=== PATIENT | male | born 1950 | race Caucasian/White ===

== ENCOUNTER 2019-08-12 00:06 | Outpatient (CLI) | payer MEDICARE, OTHER, SELFPAY ==
[2019-08-12 16:41] LABS: SARS-CoV-2 RNA PCR Negative
== END 2019-08-12 00:07 | disposition home or self-care (01) ==
LOC: ANHCOVIDDT 00:07
PROVIDERS: PCP Family Medicine; Visit Provider Internal Medicine Gastroenterology
DX: Z01.812 Encounter for preprocedural laboratory examination (principal); Z20.828 Contact with and (suspected) exposure to other viral communicable diseases
CPT/HCPCS: 87635; C9803; U0003

== ENCOUNTER 2019-08-14 01:51 | Day surgery (SDC) | payer MEDICARE, OTHER, SELFPAY ==
[2019-08-07 12:04] VITALS: BMI 25.0
[2019-08-14 08:16] VITALS: BP 128/77; PULSE 57; RESP 16; TEMP 36.4; O2SAT 99; BMI 25.1
--- NOTE | 2019-08-14 08:19 | P.PNAN_ITS ---
Anes - Initial Pre Proc Eval Procedure: Operation Date: 08/14/19 09:00 Proposed Procedures p Screening Colonoscopy - Eliceo Titus MD Date/Time: 08/14/19 08:19 Surgeon: Eliceo Titus MD Pre Op Diagnosis: History of Polyps Patient Data Age: 68 Gender: M Height: 5 ft 9 in Weight: 77.1 kg Last Vital Signs Temp 97.5 F L 08/14/19 08:16 Pulse 57 L 08/14/19 08:16 Resp 16 08/14/19 08:16 BP 128/77 08/14/19 08:16 Pulse Ox 99 08/14/19 08:16 Allergies Allergy/AdvReac Type Severity Reaction Status Date / Time No Known Allergies Allergy Unverified 12/21/17 03:24 Home Medications Medication Instructions Recorded Confirmed Type aspirin [Aspir-81] 81 mg PO DAILY 08/07/19 08/07/19 History bupropion HCl [Wellbutrin SR] 150 mg PO DAILY 08/07/19 08/07/19 History citalopram [Celexa] 40 mg PO DAILY 08/07/19 08/07/19 History metformin [Glucophage] 250 mg PO BID 08/07/19 08/14/19 History simvastatin [Zocor] 80 mg PO DAILY 08/07/19 08/14/19 History Patient hx anesthesia problems: none Family hx anesthesia problems: none [facility] Past Medical History Medical History (Updated 08/14/19 @ 08:18 by Charles Daniels MD) Arthritis Diabetes Hyperlipidemia Social History Social History Smoking status: Never smoker Alcohol intake: never Gender identity (if verbalized by the patient): Male Anes - Eval Final PreProcedure Day of Procedure 08/14/19 08:19 Patient weight: normal Heart: bradycardia Lungs: clear to auscultation Airway: Mallampati scale class III Neurological: alert and oriented Last oral intake: >/= 8 hours ASA classification: III Emergent: no Anesthetic plan: proceed Anesthesia type and monitoring: general GIVS and standard monitoring Informed Consent: The patient's anesthetic plan and its attendant risks and benefits were discussed with the patient/family/POA. Questions were solicited and answers provided to the satisfaction of the patient/family/POA.
[2019-08-14] MEDS: LACTATED RINGERS 1,000 ML 150 ML IV CONT (08:35)
[2019-08-14 08:38] LABS: Glucose Point of Care 145 (65-105)
--- NOTE | 2019-08-14 08:55 | PM.HPGS ---
History of Present Illness History of Present Illness Consent: Risks, benefits, and alternatives have been discussed and questions answered. Patient agrees to proceed with procedure. Chief complaint: History of Polyps Narrative: Barno Barnett is a 68 year old male With a history of polyps PMFSH Past Medical History Medical History Arthritis Diabetes Hyperlipidemia Social History Social History Smoking status: Never smoker Alcohol intake: never Gender identity (if verbalized by the patient): Male Meds Home Medications and Allergies Home Medications Medication Instructions Recorded Confirmed Type aspirin [Aspir-81] 81 mg PO DAILY 08/07/19 08/07/19 History bupropion HCl [Wellbutrin SR] 150 mg PO DAILY 08/07/19 08/07/19 History citalopram [Celexa] 40 mg PO DAILY 08/07/19 08/07/19 History metformin [Glucophage] 250 mg PO BID 08/07/19 08/14/19 History simvastatin [Zocor] 80 mg PO DAILY 08/07/19 08/14/19 History Allergies Allergy/AdvReac Type Severity Reaction Status Date / Time No Known Allergies Allergy Unverified 12/21/17 03:24 Vital Signs Vital Signs - 24 hr 08/14/19 08:16 Temperature 36.4 C L Pulse Rate 57 L Respiratory Rate 16 Blood Pressure 128/77 Pulse Oximetry 99 Exam Resp: Auscultation: clear to auscultation bilaterally Cardio: Rate: regular rate Rhythm: regular rhythm GI: GI Palp: Yes Soft to palpation and No Tenderness to palpation present (GI) Assessment and Plan Assessment and plan (1) Personal history of colonic polyps: Code(s): Z86.010 - Personal history of colonic polyps Status: Acute Assessment and Plan: Colonoscopy with possible biopsy or polypectomy or cautery or injection of substances.
[2019-08-14 09:12] VITALS: BP 82/39; PULSE 60; RESP 16; O2SAT 97
[2019-08-14 09:22] VITALS: BP 88/42; PULSE 51; RESP 16; O2SAT 97
[2019-08-14 09:32] VITALS: BP 102/57; PULSE 53; RESP 18; O2SAT 99
[2019-08-14 09:42] VITALS: BP 107/61; PULSE 58; RESP 20; O2SAT 99
== END 2019-08-14 10:01 | disposition home or self-care (01) ==
PROVIDERS: PCP Family Medicine; Visit Provider Internal Medicine Gastroenterology
PROC: 0DJD8ZZ Inspection of Lower Intestinal Tract, Via Natural or Artificial Opening Endoscopic (ICD-10-PCS; CPT 45378; principal; 2019-08-14 09:00)
DX: Z12.11 Encounter for screening for malignant neoplasm of colon (principal); K57.30 Diverticulosis of large intestine without perforation or abscess without bleeding; E11.9 Type 2 diabetes mellitus without complications; E78.5 Hyperlipidemia, unspecified; M19.90 Unspecified osteoarthritis, unspecified site; Z79.84 Long term (current) use of oral hypoglycemic drugs; Z79.82 Long term (current) use of aspirin
CPT/HCPCS: G0105; J2704; J7120

== ENCOUNTER 2019-10-03 16:19 | Outpatient (CLI) | payer MEDICARE, OTHER, SELFPAY ==
--- NOTE | ~2019-10-03 | CT_ITS ---
EXAMINATION: CT lung screening DATE: 10/03/2019 16:56 INDICATION: Personal history of tobacco dependence, current smoker with 40 pack year history TECHNIQUE: Computed tomography (CT) of the chest was performed without intravenous contrast. The dose -length product (DLP) was 108.56 mGy-cm. Automated exposure control and iterative reconstruction tech [employer] were employed. COMPARISON: 10/11/2018 FINDINGS: No pulmonary nodules are identified. There is mild emphysema. There are minimal airspace op acities of the lower lobes, likely infectious or inflammatory. There is no pleural effusion or pneumo thorax. Calcified coronary artery atherosclerosis is noted. No pathologically enlarged thoracic lymph nodes are identified. The heart size is normal. The gallbladder is surgically absent. There is mild thoracic spondylosis. IMPRESSION: 1. Lung-RADS category 1: Negative. Continue annual screening with noncontrast low-dose chest CT in 12 months. Reviewed, dictated and finalized at location A. IMPRESSION: 1. Lung-RADS category 1: Negative. Continue annual screening with noncontrast l ow-dose chest CT in 12 months.
== END 2019-10-03 16:20 | disposition home or self-care (01) ==
LOC: ANHIMG 16:20
PROVIDERS: PCP Family Medicine; Visit Provider Family Medicine
DX: Z12.2 Encounter for screening for malignant neoplasm of respiratory organs (principal); Z87.891 Personal history of nicotine dependence
CPT/HCPCS: G0297

== ENCOUNTER 2020-01-08 17:33 | Observation (INO) | payer MEDICARE, OTHER, SELFPAY ==
[2020-01-08] VITALS (38 sets, daily range): BP systolic 115–146; BP diastolic 68–86; PULSE 54–68; RESP 10–22; TEMP 36.6–36.9; O2SAT 95–100; BMI 24.6
--- NOTE | ~2020-01-08 | XR_ITS ---
EXAMINATION: XR chest 2V 01/08/2020 18:34 INDICATION: Left-sided chest pressure PROCEDURE: 2 view chest COMPARISON: 04/07/2018 FINDINGS: The lungs are clear. The cardiomediastinal silhouette is within normal limits. There are no pleural effusions. There is no pneumothorax suspected. IMPRESSION: 1: NO ACUTE CARDIOPULMONARY DISEASE. Reviewed, dictated and finalized at location A.
--- NOTE | 2020-01-08 17:34 | ECG_ITS ---
Measurements Intervals [place] Rate: 54 P: 42 [place]: 162 QRS: -14 QRSD: 75 T: 39 QT: 425 QTc: 403 Interpretive Statements SINUS BRADYCARDIA CONSIDER INFERIOR INFARCT, AGE INDETERMINATE BASELINE ARTIFACT- I, III, AVR, AVL, AVF, V4-V6 ABNORMAL ECG Electronically Signed On 01-08-2020 17:51:11 CDT by Juan Cee D.O.
[2020-01-08 18:03] LABS: Basophils Absolute Auto 0.1 K/mm3 (0.0-0.1); Eosinophils Absolute Auto 0.1 K/mm3 (0-0.3); Eosinophils Percent Auto 1.3 % (0-4.4); Hematocrit 42.8 % (42.0-52.0); Hemoglobin 14.9 g/dL (14.0-18.0); Immature Granulocyte Absolute 0.13 K/mm3 (0.00-0.031); Immature Granulocyte Percent A 1.9 % (0-0.5); Mean Corpuscular HGB Conc 34.8 g/dl (32-36); Mean Corpuscular Hemoglobin 31.6 pg (26-34); Mean Corpuscular Volume 90.7 fl (80-100); Mean Platelet Volume 9.5 fl (7.4-10.4); Monocytes Absolute Auto 0.6 K/mm3 (0.1-0.6); Neutrophils Absolute Auto 4.2 K/mm3 (1.3-6.7); Neutrophils Percent Auto 61.8 % (45.5-73.1); Platelet Count Result 246 k/mm3 (150-375); Red Blood Count 4.72 M/mm3 (4.6-6.20); Red Cell Distribution Width 12.6 % (11.5-14.5); White Blood Count 6.8 K/mm3 (4.5-10.0)
[2020-01-08 18:13] LABS: INR 0.9; Prothrombin Time 12.3 Seconds (11.1-14.7)
[2020-01-08 18:14] LABS: Anion Gap 8 mmol/L (8-16); Blood Urea Nitrogen 16 mg/dL (9-20); Calcium 9.2 mg/dL (8.4-10.2); Carbon Dioxide 24 mmol/L (22-30); Chloride 107 mmol/L (98-107); Estimated Glomerular Filt Rate > 60; Glucose 107 mg/dL (75-110); Partial Thromboplastin Time 26.2 SECONDS (22.3-36.8); Sodium 139 mmol/L (137-145)
--- NOTE | 2020-01-08 18:18 | ED.CHESTPAIN ---
HPI - Chest Pain General Chief Complaint: Chest Pain Stated Complaint: chest discomfort Time Seen by Provider: 01/08/20 17:55 Source: patient Mode of arrival: ambulatory Limitations: no limitations History of Present Illness HPI narrative: 69 years old white male complaining of left chest discomfort that started in the evening, at rest 2 days ago, constant, no aggravating or relieving factors, no radiation. Patient denies any fever, chills, nausea, vomiting, shortness of breath, coughing, sore throat, headache, new or recent physical activity, or history of similar symptoms. History of diabetes, hyperlipidemia, history of smoking, currently he is vaping, no family history of coronary artery disease, Discomfort is 1.5 out of 10 all the time. EKG on arrival showed sinus bradycardia at 54 bpm, possible anterior myocardial infarction of indeterminate age, possible inferior myocardial infarction probably old, which is new compared to the previous EKG August 2018. Related Data Home Medications Medication Instructions Recorded Confirmed aspirin [Aspir-81] 81 mg PO DAILY 08/07/19 08/07/19 bupropion HCl [Wellbutrin SR] 150 mg PO DAILY 08/07/19 08/07/19 citalopram [Celexa] 40 mg PO DAILY 08/07/19 08/07/19 metformin [Glucophage] 250 mg PO BID 08/07/19 08/14/19 simvastatin [Zocor] 80 mg PO DAILY 08/07/19 08/14/19 Allergies Allergy/AdvReac Type Severity Reaction Status Date / Time No Known Allergies Allergy Verified 01/08/20 18:12 Review of Systems Review of Systems: Narrative: CONSTITUTIONAL: Denies fever, chills, or sweats. EYES: Denies visual changes, redness, or discharge. ENT: Denies rhinorrhea, congestion, sore throat, or otalgia. CARDIOVASCULAR: Denies chest pain, palpitations, or edema. RESPIRATORY: Denies cough or dyspnea. GASTROINTESTINAL: Denies abdominal pain, nausea, vomiting, or diarrhea. GENITOURINARY: Denies dysuria or hematuria. SKIN: Denies rash or itching. MUSCULOSKELETAL: Denies back pain, joint pain, or myalgia. NEUROLOGIC: Denies headache, numbness, or weakness. PSYCHIATRIC: Denies anxiety or depression. [facility] Past Medical History Medical History (Updated 01/08/20 @ 19:30 by Poli Rebolledo MD) Arthritis Diabetes Hyperlipidemia Social History Social History Smoking status: Never smoker Alcohol intake: never Gender identity (if verbalized by the patient): Male Exam Narrative: Exam Narrative: General appearance: Well-developed, well-nourished Skin: Normal color Head: Normocephalic, nontraumatic Eyes: Clear conjunctiva ENT: Oropharynx normal, ears normal, nose normal Neck: Supple, nontender Chest and respiratory: Airway patent, no respiratory distress, no accessory muscle use Heart: Regular rate/rhythm Abdomen: Soft, nontender, no organomegaly, quiet bowel sounds Vascular: Normal peripheral pulses, normal capillary refill. Musculoskeletal: Normal range of motion, nontender back Neurologic: Alert and oriented ?3, HARBOR MASTER is normal as tested, no gross motor deficit Course Course Emergency Course: Stable Consultations Consultation #1: TAMELA Date: 01/08/20 Time: 19:31 Vital Signs Vital signs: Vital Signs Pulse Rate 57 L 01/08/20 17:40 Respiratory Rate 19 01/08/20 17:40 Blood Pressure 142/84 H 01/08/20 17:40 Pulse Oximetry 100 01/08/20 17:40 Temperature 36.8 C 01/08/20 18:02 Pulse Rate 54 L 01/08/20 19:27 Respiratory Rate 12 01/08/20 19:27 Blood Pressure 131/83 01/08/20 19:27 Pulse Oximetry 97 01/08/20 19:27 MDM - Chest Pain Lab Data Result diagrams: 01/08/20 17:58 01/08/20 17:58 Labs: Lab Results
[2020-01-08 18:26] LABS: Troponin I < 0.012 ng/mL (0.000-0.034)
[2020-01-08] MEDS: ASPIRIN 81 MG CHEWABLE TABLET 324 MG PO (19:00)
[2020-01-08 19:02] LABS: Lipase 92 U/L (23-300)
--- NOTE | 2020-01-08 19:10 | PC.NURSE ---
0 - Pharmacy called for Pyxis refill of Nitro. aware.
[2020-01-08 19:17] LABS: D Dimer 0.27 ug/mL (<0.48)
[2020-01-08] MEDS: NITROGLYCERIN SL 0.4 MG TABLET SUBLINGUAL (19:26)
--- NOTE | 2020-01-08 19:36 | PC.NURSE ---
Pt states improvement to chest pain after 2 doses of Nitro 0.4mg. Pt states he feels hunger pains instead of chest pain at this time. MD states pt can eat at this time. Meal given to pt.
--- NOTE | 2020-01-08 20:55 | PC.NURSE ---
Report called to [facility] RN.
[2020-01-08] MEDS: ENOXAPARIN 80 MG/0.8 ML SYRINGE SUB-Q (20:58)
[2020-01-08 21:12] LABS: Troponin I < 0.012 ng/mL (0.000-0.034)
--- NOTE | 2020-01-08 23:58 | ECG_ITS ---
Measurements Intervals [place] Rate: 54 P: 57 [place]: 179 QRS: 1 QRSD: 78 T: 48 QT: 441 QTc: 420 Interpretive Statements SINUS BRADYCARDIA BORDERLINE ECG Electronically Signed On 01-09-2020 7:10:19 CDT by Juan Cee D.O.
[2020-01-09] VITALS: PULSE 55
[2020-01-09 00:22] LABS: Troponin I < 0.012 ng/mL (0.000-0.034)
[2020-01-09 01:56] VITALS: PULSE 52
[2020-01-09 04:00] VITALS: BP 117/66; PULSE 49; PULSE 55; RESP 20; TEMP 36.3; O2SAT 100
[2020-01-09 05:42] VITALS: PULSE 52
[2020-01-09 07:51] VITALS: BP 122/70; PULSE 51; RESP 19
--- NOTE | 2020-01-09 08:53 | PM.IMHP ---
H&P: HPI History of Present Illness Date/Time: 01/09/20 08:53 69 y/o male with h/o DM, HLD, ex smoker (vaping now), who presented with chest pain He refused to describe it as pain rather it feels like discomfort under the left breast. No radiation to the arm or jaw. It is 1-2/10 at most Has been constant, no aggravating by exercise or food. Has been constant since Monday but resolved now. He had rare heartburn in the past but current pain feels different. 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 EKG sinus bradycardia at 54 bpm, possible small Q waves in inferior leads, unchanged from EKG August 2018. No family history of coronary artery disease, Chief complaint: Chest Pain, Abnormal EKG Narrative: Baron Barnett is a 69 year old male Review of Systems Review of Systems: All systems reviewed & are unremarkable except as noted in HPI and below Constitutional: Constitutional: Denies fatigue and Denies headache(s) Eyes: Eyes: Denies blurry vision ENT: Reports Normal hearing present and Denies headache(s) Cardiovascular: Cardiovascular: Denies chest pain, Denies diaphoresis, Denies pedal edema, Denies leg edema, Denies lightheadedness, Denies palpitations and Denies dyspnea Respiratory: Respiratory: Denies cough and Denies dyspnea Gastrointestinal: Gastrointestinal: Denies abdominal pain Musculoskeletal: Musculoskeletal: Denies back pain Neurologic: Reports Normal hearing present and Denies headache(s) Psychiatric: Psychiatric: Denies anxiety Endocrine: Endocrine: Denies fatigue and Denies palpitations [facility] Past Medical History Medical History (Updated 01/09/20 @ 09:04 by Alex Ramirez MD) Arthritis Diabetes Hyperlipidemia Family History Family History (Updated 01/08/20 @ 22:09 by Meli Rock RN) Father Alcohol abuse by father Sibling COPD (chronic obstructive pulmonary disease) Social History Social History Smoking status: Former smoker Tobacco type: e-cigarettes/vaping Alcohol intake: former Substance use: never Substance use type: does not use Living arrangements: with family Gender identity (if verbalized by the patient): Male Spiritual care concerns: No Meds Home Medications and Allergies Home Medications Medication Instructions Recorded Confirmed Type aspirin [Aspir-81] 81 mg PO DAILY 08/07/19 01/08/20 History bupropion HCl [Wellbutrin SR] 150 mg PO QPM 08/07/19 01/08/20 History citalopram [Celexa] 40 mg PO DAILY 08/07/19 01/08/20 History metformin [Glucophage] 500 mg PO BID 08/07/19 01/08/20 History simvastatin [Zocor] 80 mg PO EVERY OTHER DAY 08/07/19 01/08/20 History Allergies Allergy/AdvReac Type Severity Reaction Status Date / Time No Known Allergies Allergy Verified 01/08/20 18:12 Vital Signs Vital Signs - 24 hr 01/08/20 17:40 01/08/20 17:41 01/08/20 17:45 Temperature Pulse Rate 57 L 57 L 58 L Respiratory Rate 19 13 22 H Blood Pressure 142/84 H Pulse Oximetry 100 100 01/08/20 17:46 01/08/20 17:57 01/08/20 18:00 Temperature Pulse Rate 56 L 58 L 57 L Respiratory Rate 13 16 Blood Pressure 146/77 H Pulse Oximetry 99 98 01/08/20 18:01 01/08/20 18:02 01/08/20 18:15 Temperature 36.8 C Pulse Rate 64 57 L 57 L Respiratory Rate 10 L 12 14 Blood Pressure 138/77 142/84 H Pulse Oximetry 99 100 96 01/08/20 18:16 01/08/20 18:30 01/08/20 18:45 Temperature Pulse Rate 56 L 57 L 59 L Respiratory Rate 10 L 15 13 Blood Pressure 127/76 Pulse Oximetry 98 99 97 01/08/20 19:00 01/08/20 19:02 01/08/20 19:03 Temperature Pulse Rate 68 58 L 57 L Respiratory Rate 20 18 16 Blood Pressure 127/86 Pulse Oximetry 98 96 98 01/08/20 19:15 01/08/20 19:16 01/08/20 19:27 Temperature Pulse Rate 55 L 57 L 54 L Respiratory Ra
--- NOTE | 2020-01-09 09:05 | PM.DS ---
DS: Admitting Diagnosis Admitting Diagnosis Admitting Diagnosis: Chest Pain DS: Discharge Diagnosis Discharge Diagnosis (1) Chest pain: Qualifiers: Chest pain type: unspecified Qualified Code(s): R07.9 - Chest pain, unspecified Code(s): R07.9 - Chest pain, unspecified Status: Acute Assessment and Plan: Resolved. Atypical for angina He has ruled out for [place] by negative troponin and by EKG that is not changed from baseline He had stress test Jan 2019 with no ischemia No need for any further work up at this point. Patient is stable for discharge (2) HLD (hyperlipidemia): Code(s): E78.5 - Hyperlipidemia, unspecified Status: Acute (3) Diabetes: Code(s): E11.9 - Type 2 diabetes mellitus without complications Status: Acute DS: Summary Time Spent with Patient Time attestation: Total time spent providing and/or coordinating discharge services: Exam Const: General: no acute distress Eyes: Sclera: sclerae normal Neck: Neck: no JVD Carotids: no bruits Resp: Effort & Inspection: normal respiratory effort Auscultation: clear to auscultation bilaterally Cardio: Rate: regular rate and not tachycardic Rhythm: regular rhythm Heart sounds: no gallops, no murmurs and no rubs Skin: General skin exam: normal color Neuro: Cranial nerves: Yes Normal hearing present Speech: normal speech Extrem: General: normal to inspection and no edema Psych: Affect: normal affect DS: Data Data Completed and Pending Labs on day of discharge: Labs from last 24 hours 01/08/20 01/08/20 01/08/20 23:52 20:43 17:58 WBC RBC Hgb Hct MCV MCH MCHC RDW Plt Count MPV Immature Gran % (Auto) Neut % (Auto) Lymph % (Auto) Grainger % (Auto) Eos % (Auto) Baso % (Auto) Lymph # (Auto) Grainger # (Auto) Eos # (Auto) Baso # (Auto) Abs Immat Gran (auto) Absolute Neuts (auto) Absolute Nucleated RBC Nucleated RBC % PT INR APTT D-Dimer Sodium Potassium Chloride Carbon Dioxide Anion Gap BUN Creatinine Estim Creat Clear Calc Estimated GFR Glucose Calcium Troponin I < 0.012 < 0.012 Lipase 92 01/08/20 01/08/20 01/08/20 17:58 17:58 17:58 WBC RBC Hgb Hct MCV MCH MCHC RDW Plt Count MPV Immature Gran % (Auto) Neut % (Auto) Lymph % (Auto) Grainger % (Auto) Eos % (Auto) Baso % (Auto) Lymph # (Auto) Grainger # (Auto) Eos # (Auto) Baso # (Auto) Abs Immat Gran (auto) Absolute Neuts (auto) Absolute Nucleated RBC Nucleated RBC % PT 12.3 INR 0.9 APTT 26.2 D-Dimer 0.27 Sodium 139 Potassium 4.0 Chloride 107 Carbon Dioxide 24 Anion Gap 8 BUN 16 Creatinine 1.00 Estim Creat Clear Calc Not Reportable Estimated GFR > 60 Glucose 107 Calcium 9.2 Troponin I < 0.012 Lipase 01/08/20 17:58 WBC 6.8 RBC 4.72 Hgb 14.9 Hct 42.8 MCV 90.7 MCH 31.6 MCHC 34.8 RDW 12.6 Plt Count 246 MPV 9.5 Immature Gran % (Auto) 1.9 H Neut % (Auto) 61.8 Lymph % (Auto) 25.0 Grainger % (Auto) 9.0 H Eos % (Auto) 1.3 Baso % (Auto) 1.0 Lymph # (Auto) 1.70 Grainger # (Auto) 0.6 Eos # (Auto) 0.1 Baso # (Auto) 0.1 Abs Immat Gran (auto) 0.13 H Absolute Neuts (auto) 4.2 Absolute Nucleated RBC 0.0 Nucleated RBC % 0.0 PT INR APTT D-Dimer Sodium Potassium Chloride Carbon Dioxide Anion Gap BUN Creatinine Estim Creat Clear Calc Estimated GFR Glucose Calcium Troponin I Lipase Discharge Plan Discharge Attending physician on discharge: Alex Ramirez Discharging Clinician: Alex Ramirez Patient Disposition: Home, Self-Care Activity: unlimited Diet: heart healthy Stand Alone Forms: General Discharge Information Follow-up/Referrals: Sylvester,Charisse Crabtree MD [Primary Care Provider] -
== END 2020-01-09 10:00 | disposition home or self-care (01) ==
LOC: ANHED 19:30 → ANHCPC 22:22
PROVIDERS: Family Medicine; Admitting Provider Specialist; Emergency Provider Emergency Medicine; PCP Family Medicine; Visit Provider Internal Medicine
DX: R07.9 Chest pain, unspecified (principal); E11.9 Type 2 diabetes mellitus without complications; E78.5 Hyperlipidemia, unspecified; R94.31 Abnormal electrocardiogram [ECG] [EKG]; F17.290 Nicotine dependence, other tobacco product, uncomplicated; Z79.899 Other long term (current) drug therapy; Z79.84 Long term (current) use of oral hypoglycemic drugs; Z79.82 Long term (current) use of aspirin
CPT/HCPCS: 36415; 71046; 80048; 83690; 84484; 85025; 85380; 85610; 85730; 93005; 99285; A9270; G0378; J1650

== ENCOUNTER 2021-03-25 10:48 | Outpatient (CLI) | payer MEDICARE, OTHER, SELFPAY ==
--- NOTE | 2021-03-25 | ECG_ITS ---
Measurements Intervals [place] Rate: 53 P: 67 [place]: 160 QRS: 19 QRSD: 85 T: 54 QT: 420 QTc: 395 Interpretive Statements SINUS BRADYCARDIA MINIMAL Q WAVES- INFERIOR LEADS BORDERLINE T WAVE ABNORMALITY- HIGH LATERAL LEADS BASELINE ARTIFACT- I, AVR, AVL, AVF, V3 BORDERLINE ECG Electronically Signed On 03-25-2021 12:58:05 [employer]IL SCIENCE [employer]ACH[employer] by Juan Cee D.O.
[2021-03-25 11:50] LABS: Anion Gap 11 mmol/L (8-16); Blood Urea Nitrogen 17 mg/dL (9-20); Calcium 8.9 mg/dL (8.4-10.2); Carbon Dioxide 21 mmol/L (22-30); Chloride 105 mmol/L (98-107); Estimated Glomerular Filt Rate > 60; Glucose 152 mg/dL (65-110); Potassium 4.2 mmol/L (3.4-5.0); Sodium 137 mmol/L (137-145)
== END 2021-03-25 10:49 | disposition home or self-care (01) ==
LOC: ANHLAB 10:56
PROVIDERS: PCP Family Medicine; Visit Provider Orthopaedic Surgery Hand Surgery
DX: M18.9 Osteoarthritis of first carpometacarpal joint, unspecified (principal); R00.1 Bradycardia, unspecified
CPT/HCPCS: 36415; 80048; 93005

== ENCOUNTER 2021-09-10 08:34 | Emergency (ER) | payer MEDICARE, OTHER, SELFPAY ==
--- NOTE | ~2021-09-10 | XR_ITS ---
[id number] 09/10/2021 09:32 Indication: Posterior neck pain. Shoulder pain. Procedure: 3 view cervical spine Comparison: No prior studies for comparison. Findings: Vertebral body heights are maintained. There is moderate multilevel uncinate and facet hype rtrophy. There is degenerative anterolisthesis at C4-5 and C5-6. No prevertebral soft tissue swelling . No acute fracture or traumatic malalignment. Odontoid process within normal limits. Impression: 1: Moderate cervical spondylosis. Reviewed, dictated and finalized at location A. Impression: 1: Moderate cervical spondylosis.
[2021-09-10 08:39] VITALS: BP 127/62; PULSE 55; RESP 12; O2SAT 98
--- NOTE | 2021-09-10 09:09 | ED.NECK ---
HPI - Neck Pain/Injury General Chief Complaint: Neck Pain/Injury Stated Complaint: neck and shoulder pain Time Seen by Provider: 09/10/21 08:44 History of Present Illness HPI Narrative: 71-year-old male presents to the emergency room for evaluation of neck and shoulder pain. Patient states the pain has been present for about a month and is progressively getting worse. Patient states that he has been to the chiropractor on 8 occasions and has not alleviated his symptoms. Patient states that he also went to his primary care physician's office a week ago and was given a course of steroids. Reports that the prednisone did not help. States the neck pain radiates into his shoulders and he has paresthesias in his third through fifth fingers. Patient denies any injury or trauma. States that he found old hydrocodone this morning and took it to alleviate his pain. Also endorses decreased nurse executive strength on the left. Related Data Home Medications Medication Instructions Recorded Confirmed aspirin 81 mg tablet,delayed 81 mg PO DAILY 08/07/19 01/08/20 release (Aspir-) bupropion HCl 150 mg tablet,12 hr 150 mg PO QPM 08/07/19 01/08/20 sustained-release (Wellbutrin SR) citalopram 40 mg tablet (Celexa) 40 mg PO DAILY 08/07/19 01/08/20 metformin 500 mg tablet 500 mg PO BID 08/07/19 01/08/20 (Glucophage) simvastatin 80 mg tablet (Zocor) 80 mg PO EVERY OTHER DAY 08/07/19 01/08/20 Allergies Allergy/AdvReac Type Severity Reaction Status Date / Time No Known Allergies Allergy Verified 09/10/21 08:45 Review of Systems Review of Systems: CONSTITUTIONAL: Denies fever, chills, or sweats. EYES: Denies visual changes, redness, or discharge. ENT: Denies rhinorrhea, congestion, sore throat, or otalgia. CARDIOVASCULAR: Denies chest pain, palpitations, or edema. RESPIRATORY: Denies cough or dyspnea. GASTROINTESTINAL: Denies abdominal pain, nausea, vomiting, or diarrhea. GENITOURINARY: Denies dysuria or hematuria. SKIN: Denies rash or itching. MUSCULOSKELETAL: Reports neck pain reports left shoulder pain NEUROLOGIC: Denies headache, numbness, dizziness, or weakness. PSYCHIATRIC: Denies anxiety or depression. [facility] Past Medical History Medical History Arthritis Diabetes Hyperlipidemia Family History Family History Father Alcohol abuse by father Sibling COPD (chronic obstructive pulmonary disease) Social History Social History Smoking status: Former smoker Tobacco type: e-cigarettes/vaping Alcohol intake: former Substance use: never Substance use type: does not use Gender identity (if verbalized by the patient): Male Spiritual care concerns: No Exam Narrative: GENERAL: Well-appearing, well-nourished, no physical limitations, and in no acute distress. HEAD: Normocephalic, atraumatic. EYES: Conjunctivae normal, PERRLA and EOMI. NECK: Supple. No meningeal signs. No adenopathy or masses. CHEST: Clear to auscultation. No respiratory distress. No wheezes rales or rhonchi. No tenderness. HEART: Regular rate and rhythm. No murmur heard. Normal peripheral pulses. BACK: No CVA tenderness; no midline cervical tenderness, step-offs, bony abnormality; FROM; tenderness over the left trapezius with noted muscle spasm EXTREMITIES: Normal range of motion. No edema. No clubbing or cyanosis; left shoulder no bony tenderness, full range of motion SKIN: Warm, dry, no rash. No noted wounds NEURO: No focal deficits. Alert and oriented x3. MAEW. CN's II-XI intact bilaterally, normal gait PSYCH: Cooperative. Normal mood and affect. Course Vital Signs Vital signs: Vital Signs Pulse Rate 55 L 09/10/21 08:39 Respiratory Rate 12 09/10/21 08:39 Blood Pressure 127/62 09/10/21 08:39 Pulse Oximetry 98 09/10/21 08:39 Oxygen Delivery Room Air 09/10/21 08:39
--- NOTE | 2021-09-10 10:23 | PC.NURSE ---
rn at bedside, pt requesting pain medication. this rn spoke with navarro garcia. ERP informed this rn that patient already took a [place] tablet prior to coming to the er. Pt informed that he is receiving muscle relaxers that he can take for home, and that the erp does not want to give anything else other than the norco he already took.
[2021-09-10 10:41] VITALS: BP 127/62; PULSE 54; RESP 16; O2SAT 96
== END 2021-09-10 10:41 | disposition home or self-care (01) ==
PROVIDERS: Emergency Provider Nurse Practitioner Family; PCP Family Medicine
DX: S16.1XXA Strain of muscle, fascia and tendon at neck level, initial encounter (principal); E11.9 Type 2 diabetes mellitus without complications; E78.5 Hyperlipidemia, unspecified; Z87.891 Personal history of nicotine dependence; X58.XXXA Exposure to other specified factors, initial encounter
CPT/HCPCS: 72040; 99283

== ENCOUNTER 2022-01-05 10:04 | Outpatient (CLI) | payer MEDICARE, OTHER, SELFPAY ==
--- NOTE | ~2022-01-05 | XR_ITS ---
EXAMINATION: XR chest 2V 01/05/2022 10:44 INDICATION: Cervical radiculopathy PROCEDURE: 2 view chest COMPARISON: 01/08/2020 FINDINGS: The lungs are clear. The cardiomediastinal silhouette is within normal limits. There are no pleural effusions. There is no pneumothorax suspected. IMPRESSION: 1: NO ACUTE CARDIOPULMONARY DISEASE. Reviewed, dictated and finalized at location B.
--- NOTE | ~2022-01-05 | XR_ITS ---
XR lumbar spine 2-3V DATE: 01/05/2022 10:43 INDICATION: Back pain TECHNIQUE: AP, lateral, coned lateral lumbosacral views COMPARISON: 05/25/2017 lumbar spine FINDINGS: There is severe degenerative disc disease at L5-S1, increased since 2018, and mild degenera tive disc disease at the lumbar interspaces. No fracture or bone destruction or spondylolisthesis. The included lower thoracic and lumbar pedicles are intact. The sacroiliac joints appear normal. There is extensive calcification abdominal aorta and common iliac arteries, without evidence of abdom inal aortic aneurysm. Status post cholecystectomy. IMPRESSION: Severe degenerative disc disease at L5-S1 and mild degenerative disc disease at the remai leatha lumbar interspaces Reviewed, dictated and finalized at location A. IMPRESSION: Severe degenerative disc disease at L5-S1 and mild degenerative dis c disease at the remaining lumbar interspaces
--- NOTE | ~2022-01-05 | XR_ITS ---
XR thoracic spine 3V DATE: 01/05/2022 10:43 INDICATION: Neck pain, back pain, radiculopathy TECHNIQUE: AP, lateral, swimmer views COMPARISON: None FINDINGS: There is mild degenerative spurring of the lower thoracic spine. No fracture or dislocation or bone destruction. The thoracic pedicles are intact. No paraspinal soft tissue thickening. IMPRESSION: Mild degenerative change Reviewed, dictated and finalized at location A. IMPRESSION: Mild degenerative change
--- NOTE | ~2022-01-05 | XR_ITS ---
XR_CERV2-3V_CR DATE: 01/05/2022 10:43 INDICATION: Neck pain, cervical radiculopathy. TECHNIQUE: AP, open-mouth, odontoid, lateral and swimmer views COMPARISON: 09/10/2021 cervical spine FINDINGS: Stable mild anterolisthesis at C4-5 and C5-6, not significantly changed since 09/10/2021. Cervical disc spaces are relatively well preserved. There is minimal degenerative spurring of the low er cervical spine. C1 and C2 are normally aligned and the odontoid process is intact. There is degenerative change at th e apophyseal joints.. IMPRESSION: Degenerative changes apophyseal joints with associated mild anterolisthesis at C4-5 and C 5-6 Reviewed, dictated and finalized at Location [facility]. Reviewed, dictated and finalized at location A. IMPRESSION: Degenerative changes apophyseal joints with associated mild anterol isthesis at C4-5 and C5-6
== END 2022-01-05 10:05 | disposition home or self-care (01) ==
PROVIDERS: PCP Emergency Medicine; Visit Provider Emergency Medicine
DX: M54.12 Radiculopathy, cervical region (principal); M51.37 Other intervertebral disc degeneration, lumbosacral region
CPT/HCPCS: 71046; 72040; 72072; 72100

== ENCOUNTER 2022-01-27 14:53 | Outpatient (CLI) | payer MEDICARE, OTHER, SELFPAY ==
--- NOTE | ~2022-01-27 | CT_ITS ---
EXAMINATION: CT lung screening DATE: 01/27/2022 15:13 INDICATION: Personal history of nicotine dependence, prior smoker with 40 pack year history TECHNIQUE: Computed tomography (CT) of the chest was performed without intravenous contrast. The dose -length product (DLP) was 121.91 mGy-cm. 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 COMPARISON: 10/03/2019 FINDINGS: There is mild emphysema. There are minimal chronic airspace opacities of the lower lobes. N o suspicious pulmonary nodules are identified. The lungs are free of acute opacities. No pleural effu wiley or pneumothorax. No pathologically enlarged thoracic lymph nodes are identified. The heart size is normal. There is calcified coronary artery atherosclerosis. There is mild thoracic spondylosis. IMPRESSION: 1. Lung-RADS category 1: Negative. Continue annual screening with noncontrast low-dose chest CT in 12 months. Reviewed, dictated and finalized at location F. TECHNICAL LEAD IMPRESSION: 1. Lung-RADS category 1: Negative. Continue annual screening with noncontrast l ow-dose chest CT in 12 months.
== END 2022-01-27 14:54 | disposition home or self-care (01) ==
LOC: ANHIMG 14:56
PROVIDERS: PCP Emergency Medicine; Visit Provider Emergency Medicine
DX: Z12.2 Encounter for screening for malignant neoplasm of respiratory organs (principal); Z87.891 Personal history of nicotine dependence
CPT/HCPCS: 71271

== ENCOUNTER 2023-03-23 14:21 | Outpatient (CLI) | payer MEDICARE, OTHER, SELFPAY ==
--- NOTE | ~2023-03-23 | CT_ITS ---
CT Scan of the Chest without Contrast: Clinical Indication: Lung cancer screening, personal history of nicotine dependence Technique: Contiguous sections were acquired throughout the chest without intravenous contrast. Dose reduction technique was used on this scan by utilizing automated exposure control and iterative recon struction technique. The dose-length product (DLP) was 129.10 mGy-cm. COMPARISON: 01/27/2022 Findings: There is no evidence of any significant mediastinal, hilar or axillary lymphadenopathy. Coronary donnell ry calcifications are present. There is no evidence of pleural or pericardial effusion. There are multiple tiny nodules, some of which are calcified, at the bilateral lung bases, most abel tible with postinflammatory change, stable from prior exam. Images through the upper abdomen reveal no abnormalities. Impression: Lung RADS 2: Benign appearance. 12 month follow-up CT advised. Reviewed, dictated and finalized at [facility]. ERY HANGER Impression: Lung RADS 2: Benign appearance. 12 month follow-up CT advised.
== END 2023-03-23 14:22 | disposition home or self-care (01) ==
PROVIDERS: PCP Family Medicine; Visit Provider Family Medicine
DX: Z12.2 Encounter for screening for malignant neoplasm of respiratory organs (principal); Z87.891 Personal history of nicotine dependence
CPT/HCPCS: 71271

== ENCOUNTER 2023-05-18 09:55 | Outpatient (CLI) | payer MEDICARE, OTHER, SELFPAY ==
--- NOTE | 2023-05-18 16:51 | WPDPFTINT ---
PFT Procedure Performed PFT Procedure Performed Spirometry with Pre/Post Bronchodilator Plethysmography (Lung Vol) Diffusing Cap (DLCO) Flow Vol Loop PFT Interpretation This is a pulmonary function test with pre and post-bronchodilator spirometry, plethysmography and diffusing capacity. The test was performed and results interpreted in accordance with the 2019 and 2005 ATS/ERS Task Force guidelines respectively using the Global Lung Function Initiative-2012 reference equations. Patient demonstrated good effort and cooperation. Reproducibility criteria were met. The quality of the pre bronchodilator spirometry maneuver was Grade B and post bronchodilator spirometry maneuver was Grade A. Findings: Spirometry: The contour the inspiratory and expiratory flow tracing are normal. The pre bronchodilator FVC is 3.81 L, 94% predicted. The pre bronchodilator FEV1 is 2.68 L, 87% predicted. The pre bronchodilator FEV1: FVC ratio 70%. The post bronchodilator FVC is 4.15 L, representing a 9% increase. The post bronchodilator FEV1 is 2.98 L, representing an 11% increase. The post bronchodilator FEV1: FVC ratio is 72%. Plethysmography: The total lung capacity is 6.63 L, 97% predicted. The functional residual capacity is 3.55 L, 98% predicted. The residual volume is 2.51 L, 104% predicted. Diffusing capacity: The diffusing capacity unadjusted for hemoglobin and carboxyhemoglobin is 22.6, 89% predicted. The diffusing capacity adjusted for alveolar volume is 4.01, 101% predicted. Impression: The spirometry is normal without evidence of an obstructive abnormality. There is no significant improvement after inhaling a single dose of albuterol. The lung volumes are normal. The diffusing capacity is normal. There are no prior studies for comparison
--- NOTE | 2023-05-18 16:53 | WPDSIXMINUTE ---
Six Minute Walk Procedure Procedure Performed Pulmonary Stress Test (6 min walk) Six Minute Walk Six Minute Walk: This is a 6 minute walk test. The test was performed and interpreted in accordance with the 2014 ERS/ATS task force guidelines. Findings: The patient's resting room air oxygen saturation measured by pulse oximetry was 98% and heart rate was 61 bpm. Patient ambulated for 396 meters and oxygen saturation remained 95 to 98%. Heart rate at the end of the study was 66 bpm. The patient did not qualify for supplemental oxygen at rest or with ambulation. There are no prior studies for comparison.
== END 2023-05-18 09:56 | disposition home or self-care (01) ==
LOC: ANHPFT 09:57
PROVIDERS: PCP Family Medicine; Visit Provider Physician Assistant
DX: J43.9 Emphysema, unspecified (principal); R06.09 Other forms of dyspnea
CPT/HCPCS: 94060; 94618; 94726; 94729

== ENCOUNTER 2023-11-14 20:56 | Emergency (ER) | payer OTHER, MEDICARE, SELFPAY ==
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
[2023-11-14 20:55] VITALS: BP 163/68; PULSE 58; RESP 19; TEMP 36.6; O2SAT 100
--- NOTE | 2023-11-14 21:10 | ECG_ITS ---
Test Date: 2023-11-14 20:59:45 Measurements Intervals [place] Rate: 58 P: 63 [place]: 169 QRS: 12 QRSD: 62 T: 54 QT: 403 QTc: 397 Interpretive Statements SINUS BRADYCARDIA BASELINE ARTIFACT- I, II, III, AVR, AVL, AVF, V3 BORDERLINE ECG No previous ECG available for comparison Electronically Signed On 11-15-2023 06:34:25 CDT by Juan Cee D.O.
[2023-11-14 21:34] LABS: Basophils Absolute Auto 0.1 K/mm3 (0.0-0.1); Basophils Percent Auto 0.9 % (0.2-1.2); Eosinophils Absolute Auto 0.1 K/mm3 (0-0.3); Eosinophils Percent Auto 1.9 % (0-4.4); Hematocrit 43.6 % (42.0-52.0); Hemoglobin 15.1 g/dL (14.0-18.0); Immature Granulocyte Absolute 0.11 K/mm3 (0.00-0.031); Immature Granulocyte Percent A 1.7 % (0-0.5); Lymphocytes Absolute Auto 1.61 K/mm3 (0.9-3.2); Lymphocytes Percent Auto 25.5 % (18.3-44.2); Mean Corpuscular HGB Conc 34.6 g/dl (32-36); Mean Corpuscular Hemoglobin 32.2 pg (26-34); Mean Platelet Volume 10.1 fl (7.4-10.4); Monocytes Absolute Auto 0.7 K/mm3 (0.1-0.6); Monocytes Percent Auto 10.8 % (2.6-8.5); Neutrophils Absolute Auto 3.7 K/mm3 (1.3-6.7); Neutrophils Percent Auto 59.2 % (45.5-73.1); Platelet Count Result 226 k/mm3 (150-375); Red Blood Count 4.69 M/mm3 (4.6-6.20); Red Cell Distribution Width 13.2 % (11.5-14.5); White Blood Count 6.3 K/mm3 (4.5-10.0)
[2023-11-14 21:43] LABS: Alanine Aminotransferase 16 U/L (6-50); Albumin Level 4.1 g/dL (3.5-5.1); Alkaline Phosphatase 65 U/L (38-126); Anion Gap 13 mmol/L (4-12); Aspartate Amino Transferase 22 U/L (17-59); Bilirubin,Total 0.4 mg/dL (0.2-1.3); Blood Urea Nitrogen 18 mg/dL (9-20); Calcium 8.7 mg/dL (8.4-10.2); Carbon Dioxide 21 mmol/L (22-30); Chloride 103 mmol/L (98-107); Estimated CRCL calculation 59 ml/min; Estimated Glomerular Filt Rate > 60; Glucose 184 mg/dL (65-110); Lipase 100 U/L (23-300); Potassium 3.4 mmol/L (3.4-5.0); Sodium 137 mmol/L (137-145)
[2023-11-14 21:45] LABS: Partial Thromboplastin Time 25.6 Seconds (22.3-36.8); Prothrombin Time 13.5 Seconds (11.1-14.7)
[2023-11-14 21:55] LABS: Troponin I < 0.012 ng/mL (0.000-0.034)
[2023-11-14 22:02] VITALS: BP 160/73; PULSE 58; RESP 19; O2SAT 99
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
[2023-11-14 23:30] VITALS: BP 145/60; PULSE 52; RESP 15; O2SAT 99
[2023-11-14] MEDS: ACETAMINOPHEN 500 MG TABLET 1000 MG PO (23:30)
== END 2023-11-15 00:35 | disposition home or self-care (01) ==
PROVIDERS: Emergency Provider Physician Assistant
DX: R07.89 Other chest pain (principal); M92.211 Osteochondrosis (juvenile) of carpal lunate [Kienbock], right hand; E11.9 Type 2 diabetes mellitus without complications; E78.5 Hyperlipidemia, unspecified; M19.041 Primary osteoarthritis, right hand; M18.9 Osteoarthritis of first carpometacarpal joint, unspecified; M47.812 Spondylosis without myelopathy or radiculopathy, cervical region; Z87.891 Personal history of nicotine dependence; Z79.84 Long term (current) use of oral hypoglycemic drugs; Z79.899 Other long term (current) drug therapy; Z79.82 Long term (current) use of aspirin; V49.40XA Driver injured in collision with unspecified motor vehicles in traffic accident, initial encounter; R00.1 Bradycardia, unspecified
CPT/HCPCS: 36415; 70450; 71260; 72125; 73130; 74177; 80053; 83690; 84484; 85025; 85610; 85730; 93005; 99284; A9270; Q9967

== ENCOUNTER 2023-12-10 17:51 | Emergency (ER) | payer MEDICARE, OTHER, SELFPAY ==
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
--- NOTE | ~2023-12-10 | CT_ITS ---
Clinical Indication: Chest pain CT Scan of the Chest with Contrast: Technique: Contiguous sections were acquired throughout the chest after intravenous administration of 100 cc of Omnipaque 350. Dose reduction technique was used on this scan by utilizing automated expos ure control and iterative reconstruction technique. The dose-length product (DLP) was 293.47 mGy-cm. COMPARISON: 11/14/2023 Findings: There is no evidence of any significant mediastinal, hilar or axillary lymphadenopathy. There is no f illing defect in the pulmonary arterial tree to suggest pulmonary embolus. There is no evidence of ao rtic dissection or aneurysm. There is no evidence of pleural or pericardial effusion. The lungs are clear. No pulmonary nodules or infiltrates are noted. Images through the upper abdomen reveal no abnormalities. There is a subacute oblique healing fractur e of the upper sternal body, best seen on sagittal images (sagittal image 63 for example). Impression: Subacute healing fracture of the upper sternal body, as detailed above. No evidence of pulmonary embolus, aortic dissection, or aortic aneurysm. Clear lungs. Reviewed, dictated and finalized at location . Impression: Subacute healing fracture of the upper sternal body, as detailed above. No evidence of pulmonary embolus, aortic dissection, or aortic aneurysm. Clear lungs.
--- NOTE | 2023-12-10 17:57 | ECG_ITS ---
Test Date: 2023-12-10 17:57:58 Measurements Intervals [place] Rate: 56 P: 62 [place]: 187 QRS: 28 QRSD: 75 T: 63 QT: 406 QTc: 394 Interpretive Statements SINUS BRADYCARDIA DELAYED PRECORDIAL R/S TRANSITION BORDERLINE ECG Compared to ECG 11/14/2023 20:59:45 No significant changes Electronically Signed On 12-11-2023 11:07:37 CDT by Juan Cee D.O.
[2023-12-10 18:07] VITALS: BP 134/65; PULSE 60; RESP 16; TEMP 37; O2SAT 98
[2023-12-10 18:09] LABS: Basophils Absolute Auto 0.1 K/mm3 (0.0-0.1); Basophils Percent Auto 0.9 % (0.2-1.2); Eosinophils Absolute Auto 0.2 K/mm3 (0-0.3); Eosinophils Percent Auto 2.2 % (0-4.4); Hematocrit 44.7 % (42.0-52.0); Hemoglobin 15.5 g/dL (14.0-18.0); Immature Granulocyte Absolute 0.11 K/mm3 (0.00-0.031); Immature Granulocyte Percent A 1.6 % (0-0.5); Lymphocytes Absolute Auto 1.55 K/mm3 (0.9-3.2); Lymphocytes Percent Auto 22.3 % (18.3-44.2); Mean Corpuscular HGB Conc 34.7 g/dl (32-36); Mean Corpuscular Volume 92.2 fl (80-100); Mean Platelet Volume 9.4 fl (7.4-10.4); Monocytes Absolute Auto 0.8 K/mm3 (0.1-0.6); Monocytes Percent Auto 11.8 % (2.6-8.5); Neutrophils Absolute Auto 4.3 K/mm3 (1.3-6.7); Neutrophils Percent Auto 61.2 % (45.5-73.1); Platelet Count Result 253 k/mm3 (150-375); Red Blood Count 4.85 M/mm3 (4.6-6.20); Red Cell Distribution Width 13.1 % (11.5-14.5); White Blood Count 6.9 K/mm3 (4.5-10.0)
[2023-12-10 18:19] LABS: Alanine Aminotransferase 16 U/L (6-50); Albumin Level 4.3 g/dL (3.5-5.1); Alkaline Phosphatase 76 U/L (38-126); Anion Gap 11 mmol/L (4-12); Aspartate Amino Transferase 19 U/L (17-59); Bilirubin,Total 0.5 mg/dL (0.2-1.3); Blood Urea Nitrogen 25 mg/dL (9-20); Calcium 8.8 mg/dL (8.4-10.2); Carbon Dioxide 21 mmol/L (22-30); Chloride 103 mmol/L (98-107); Estimated CRCL calculation 44 ml/min; Estimated Glomerular Filt Rate 50; Glucose 130 mg/dL (65-110); Lipase 148 U/L (23-300); Potassium 3.6 mmol/L (3.4-5.0); Sodium 135 mmol/L (137-145)
[2023-12-10 18:20] LABS: INR 0.9; Prothrombin Time 12.6 Seconds (11.1-14.7)
[2023-12-10 18:21] LABS: Partial Thromboplastin Time 25.2 Seconds (22.3-36.8)
[2023-12-10 18:30] LABS: Troponin I < 0.012 ng/mL (0.000-0.034)
[2023-12-10 21:20] VITALS: PULSE 53
[2023-12-10 21:21] VITALS: BP 154/80; PULSE 55; RESP 12; TEMP 36.5; O2SAT 98
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
[2023-12-10 21:52] VITALS: O2SAT 97
--- NOTE | 2023-12-10 21:57 | ECG_ITS ---
Test Date: 2023-12-10 21:57:54 Measurements Intervals [place] Rate: 49 P: 59 [place]: 188 QRS: 15 QRSD: 75 T: 52 QT: 445 QTc: 403 Interpretive Statements SINUS BRADYCARDIA DELAYED PRECORDIAL R/S TRANSITION BASELINE WANDER- I, II, III ABNORMAL ECG Compared to ECG 11/14/2023 20:59:45 HEART RATE HAS DECREAED Electronically Signed On 12-11-2023 06:29:30 CDT by Juan Cee D.O.
[2023-12-10 22:04] LABS: Troponin I < 0.012 ng/mL (0.000-0.034)
[2023-12-10] MEDS: HYDROmorphone HCL INJ (*CRX) 1 MG/ML SYR 0.5 MG IV PUSH (22:07)
[2023-12-10 22:11] VITALS: BP 126/76; PULSE 50; RESP 14; TEMP 36.6; O2SAT 99
== END 2023-12-11 00:09 | disposition home or self-care (01) ==
PROVIDERS: Emergency Medicine; Emergency Provider Student in an Organized Health Care Education/Training Program; PCP Nurse Practitioner Family
DX: R07.89 Other chest pain (principal); M94.0 Chondrocostal junction syndrome [Tietze]; E11.9 Type 2 diabetes mellitus without complications; E78.5 Hyperlipidemia, unspecified; M19.90 Unspecified osteoarthritis, unspecified site; Z87.891 Personal history of nicotine dependence; Z79.85 Long-term (current) use of injectable non-insulin antidiabetic drugs; Z79.82 Long term (current) use of aspirin; Z79.899 Other long term (current) drug therapy; R00.1 Bradycardia, unspecified
CPT/HCPCS: 36415; 71046; 71275; 80053; 83690; 84484; 85025; 85610; 85730; 93005; 96374; 99284; J1170; Q9967

== ENCOUNTER 2024-01-09 09:52 | Outpatient (CLI) | payer MEDICARE, OTHER, SELFPAY ==
--- NOTE | ~2024-01-09 | XR_ITS ---
EXAMINATION: XR hand RT min 3V DATE: 01/09/2024 10:17 INDICATION: Right hand pain. TECHNIQUE: 3 views of right hand were obtained. COMPARISON: Right hand radiographs 11/14/2023 FINDINGS: Alignment is normal. No fracture. There is mild osteoarthritis of triscaphe joint and first carpometacarpal joint. There is mild osteoarthritis of lunate-hamate joint. There is mild osteoarthr itis of first metacarpophalangeal joint and moderate osteoarthritis of second and third metacarpophal angeal joints. There is mild osteoarthritis of most of the interphalangeal joints. There is moderate osteoarthritis of first interphalangeal joint and severe osteoarthritis of second and fifth distal in terphalangeal joints. IMPRESSION: 1. Polyarticular osteoarthritis. Reviewed, dictated and finalized at location B.
== END 2024-01-09 09:53 | disposition home or self-care (01) ==
PROVIDERS: PCP Nurse Practitioner Family; Visit Provider Physician Assistant Surgical
DX: M79.641 Pain in right hand (principal)
CPT/HCPCS: 73130

== ENCOUNTER 2024-01-31 14:43 | Outpatient (CLI) | payer MEDICARE, OTHER, SELFPAY ==
--- NOTE | ~2024-01-31 | MR_ITS ---
EXAMINATION: MR wrist RT wo/w con DATE: 01/31/2024 15:59 INDICATION: Right hand pain. TECHNIQUE: Magnetic resonance imaging (MRI) of the wrist was performed without and with 15 mL MultiHa nce intravenous contrast. COMPARISON: Right wrist radiographs 01/09/2024 FINDINGS: Intrinsic ligaments: Scapholunate ligament and lunotriquetral ligament are intact. Triangular fibrocartilage complex (TFCC): There is a partial tear of triangular fibrocartilage at its distal surface. Extensor wrist: The extensor tendons are normal. Flexor wrist: The flexor tendons are normal. Median nerve is normal. Guyon's canal: Ulnar nerve is normal. Bones/other: Alignment is normal. There is moderate osteoarthritis of triscaphe joint and severe osteoarthritis of first carpometacarpal joint. Lunate is type II. There is severe osteoarthritis of lunate-hamate join t and mild osteoarthritis of lunate-capitate and radiolunate joints with subchondral edema-like marro w signal intensity. There are subchondral cysts in hamate, lunate, and capitate. There is enhancing s ynovitis in the radiocarpal and midcarpal compartments. IMPRESSION: 1. Polyarticular osteoarthritis. 2. Partial tear of triangular fibrocartilage. Reviewed, dictated and finalized at location A. STIGATOR VICE
== END 2024-01-31 14:44 | disposition home or self-care (01) ==
LOC: ANHIMG 14:46
PROVIDERS: PCP Nurse Practitioner Family; Visit Provider Physician Assistant Surgical
DX: M19.031 Primary osteoarthritis, right wrist (principal); S63.591A Other specified sprain of right wrist, initial encounter; X58.XXXA Exposure to other specified factors, initial encounter
CPT/HCPCS: 73223; A9577

== ENCOUNTER 2024-03-12 09:04 | Outpatient (CLI) | payer MEDICARE, OTHER, SELFPAY ==
--- NOTE | 2024-03-12 11:30 | NEURO_ITS ---
Impression: # Complains of shooting pain in upper extremities, right more than left. ? # Normal Nerve Conduction Study; No Carpal Tunnel Syndrome or ulnar neuropathy. ? # Needle/EMG exam revealed neurogenic changes in right Deltoid only. ? # Clinical correlation recommended. Could be related to C-spine problems. Nerve Conduction Studies Anti Sensory Summary Table ?Stim Site NR Peak (ms) P-T Amp (?V) Site1 Site2 Delta-P (ms) Dist (cm) Porfirio (m/s) Left Median Anti Sensory (2-3nd Digit) Wrist ? 2.7 54.8 Wrist 2-3nd Digit 2.7 14.0 52 Wrist ? 2.7 45.0 Wrist 2-3nd Digit 2.7 14.0 52 Right Median Anti Sensory (2-3nd Digit) Wrist ? 2.9 42.2 Wrist 2-3nd Digit 2.9 14.0 48 Wrist ? 3.1 42.0 Wrist 2-3nd Digit 2.9 14.0 48 Left Radial Anti Sensory (Base 1st Digit) Wrist ? 1.9 14.8 Wrist Base 1st Digit 1.9 0.0 Right Radial Anti Sensory (Base 1st Digit) Wrist ? 2.5 17.0 Wrist Base 1st Digit 2.5 0.0 Left Ulnar Anti Sensory (5th Digit) Wrist ? 2.6 31.1 Wrist 5th Digit 2.6 14.0 54 Right Ulnar Anti Sensory (5th Digit) Wrist ? 2.7 28.8 Wrist 5th Digit 2.7 14.0 52 Motor Summary Table ?Stim Site NR Onset (ms) O-P Amp (mV) Site1 Site2 Delta-0 (ms) Dist (cm) Porfirio (m/s) Left Median Motor (Abd Poll Brev) Wrist ? 2.5 4.0 Elbow Wrist 5.3 30.0 57 Elbow ? 7.8 3.2 Right Median Motor (Abd Poll Brev) Wrist ? 3.0 3.8 Elbow Wrist 5.7 31.0 54 Elbow ? 8.7 3.3 Left Ulnar Motor (Abd Dig Minimi) Wrist ? 2.6 4.8 A Elbow Wrist 5.8 32.0 55 A Elbow ? 8.4 4.1 Right Ulnar Motor (Abd Dig Minimi) Wrist ? 2.4 5.1 A Elbow Wrist 5.5 31.0 56 A Elbow ? 7.9 3.3 F Wave Studies ?NR F-Lat (ms) L-R F-Lat (ms) Left Median (Mrkrs) (Abd Poll Brev) ? 28.70 0.30 Right Median (Mrkrs) (Abd Poll Brev) ? 28.40 0.30 Left Ulnar (Mrkrs) (Abd Dig Min) ? 28.31 1.07 Right Ulnar (Mrkrs) (Abd Dig Min) ? 29.38 1.07 EMG ?Side Muscle Nerve Root Ins Act Fibs Amp Dur Recrt Comment Right 1stDorInt Ulnar C8-T1 Nml Nml Nml Nml Nml Right Ext Indicis Radial (Post Int) C7-8 Nml Nml Nml Nml Nml Right Ext Digitorum Radial (Post Int) C7-8 Nml Nml Nml Nml Nml Right BrachioRad Radial C5-6 Nml Nml Nml Nml Nml Right PronatorTeres Median C6-7 Nml Nml Nml Nml Nml Right Abd Poll Brev Median C8-T1 Nml Nml Nml Nml Nml Right ABD Dig Min Ulnar C8-T1 Nml Nml Nml Nml Nml Left 1stDorInt Ulnar C8-T1 Nml Nml Nml Nml Nml Left Ext Indicis Radial (Post Int) C7-8 Nml Nml Nml Nml Nml Left Ext Digitorum Radial (Post Int) C7-8 Nml Nml Nml Nml Nml Left BrachioRad Radial C5-6 Nml Nml Nml Nml Nml Left PronatorTeres Median C6-7 Nml Nml Nml Nml Nml Left Abd Poll Brev Median C8-T1 Nml Nml Nml Nml Nml Left ABD Dig Min Ulnar C8-T1 Nml Nml Nml Nml Nml Right Biceps Musculocut C5-6 Nml Nml Nml Nml Nml Right Triceps Radial C6-7-8 Nml Nml Nml Nml Nml Right Deltoid Axillary C5-6 Nml Nml Nml >12ms +1 Left Biceps Musculocut C5-6 Nml Nml Nml Nml Nml Left Triceps Radial C6-7-8 Nml Nml Nml Nml Nml Left Deltoid Axillary C5-6 Nml Nml Nml Nml Nml MTDD
== END 2024-03-12 09:05 | disposition home or self-care (01) ==
LOC: ANHNEURO 09:05
PROVIDERS: PCP Nurse Practitioner Family; Visit Provider Physician Assistant Surgical
DX: M25.811 Other specified joint disorders, right shoulder (principal)
CPT/HCPCS: 95886; 95911

== ENCOUNTER 2024-07-25 08:40 | Outpatient (CLI) | payer MEDICARE, OTHER, SELFPAY ==
--- OUTSIDE RECORDS SUMMARY | 2024-07-25 08:45 | XMS_ITS | Clinical Summary ---
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 Gender Identity Not on file Sexual Orientation Not on file Plan of Treatment Health Maintenance Due Date Last Done Comments Hepatitis C Virus (HCV) Screening 1950 TdaP Immunization 1950 Colonoscopy 09/06/1996 Colorectal Cancer Screening 09/06/1996 Cologuard 09/06/2001 Immunochemical Fecal Occult Blood 09/06/2001 Pneumococcal Immunization (50+ years) (1 of 1 - PCV) 09/06/2001 Zoster Immunization (2 of 2) 11/26/2020 10/01/2020, 10/01/2020 Influenza Immunization (#1) 11/12/202312/11, 12/21/2019, 12/21/2019, Additional history exists SARS-COV-2 Immunization (2023- season) 2023 01/25/2021, 05/29/2020, 05/29/2020, Additional history exists Respiratory Syncytial Virus (RSV) Immunization (Adult) (1 - 1-dose 75+ series) 09/06/2026 Hepatitis B Immunization Aged Out No longer eligible based on patient's age to complete this topic Meningococcal Immunization (ACWY) Aged Out No longer eligible based on patient's age to complete this topic Rotavirus Immunization Aged Out No lo nger eligible based on patient's age to complete this topic
--- OUTSIDE RECORDS SUMMARY | 2024-07-25 08:45 | XMS_ITS | Clinical Summary ---
Author Organization [facility] [place] [facility] [place] [address] Address [address] [place] [address] Care Team Providers Care Metallurgical Engineering Technician Name Role Phone Charisse Phan MD Primary Care Provider + Allergies No known active allergies Medications metFORMIN (GLUCOPHAGE) 500 mg tablet Take 250 mg by mouth 2 (two) times a day with meals Active buPROPion XL (WELLBUTRIN XL) 150 mg 24 hr tablet Take 150 mg by mouth daily Active citalopram (CeleXA) 40 mg tablet Take 40 mg by mouth daily Active simvastatin (ZOCOR) 40 mg tablet Take 40 mg by mouth nightly Active aspirin (ADULT LOW DOSE ASPIRIN) 81 mg enteric coated tablet Take 1 tablet (81 mg total) by mouth daily 12/14/2018 Active Active Problems Problem Noted Date Diagnosed Date Coronary artery calcification seen on CAT scan 1 Dyslipidemia associated with type 2 diabetes teresa litus 12/14/2018 Tobacco abuse 12/14/2018 ADAMES (dyspnea on exertion) 12/14/2018 Bradycardia 12/14/2018 Surgical History Surgery Date Site/Laterality Comments CHOLECYSTECTOMY 12/11/2017 - 01/10/2018 TONSILLECTOMY Medical History Medical History Date Comments Diabetes mellitus (HCC) Sleep apnea Arthritis Family History Medical History Relation Name Comments No Known Problems Brother No Known Problems Father No Known Problems Father's Brother No Known Problems Father's Sister No Known Problems Maternal Grandfather No Known Problems Maternal Grandmother No Known Problems Mother No Known Problems Mother's Brother No Known Problems Mother's Sister No Known Problems Other No Known Problems Paternal Grandfather No Known Problems Paternal Grandmother No Known Problems Sister Anemia Neg Hx Arrhythmia Neg Hx Asthma Neg Hx Clotting disorder Neg Hx Fainting Neg Hx Heart attack Neg Hx Heart disease Neg Hx Heart failure Neg Hx Hyperlipidemia Neg Hx Hypertension Neg Hx Hypertrophic cardiomyopathy Neg Hx Stroke Neg Hx Sudden Cardiac Neg Hx Relation Name Status Comments Brother Father Father's Brother Father's Sister Maternal Grandfather Maternal Grandmother Mother Mother's Brother Mother's Sister Other Paternal Grandfather Paternal Grandmother Sister Social History Tobacco Use Types Packs/Day Years Used Date Smoking Tobacco: Every Day E-cigarettes Smokeless Tobacco: Never Alcohol Use Standard Drinks/Week Comments Not Currently 0 (1 standard drink = 0.6 oz pur e alcohol) Personal Safety Answer Date Recorded Getting School Help Needed Not on file 05/26 Sex and Gender Information Value Date Recorded Sex Assigned at Not on file 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 Gender Identity Not on file Sexual Orientation Not on file Obstetrics History Last Filed Vital Signs Vital Sign Reading Time Taken Comments Blood Pressure 112/72 12/14/2018 10:58 AM CDT Pulse 60 12/14/2018 10:58 AM CDT Temperature - - Respiratory Rate - - Oxygen Saturation 98% 12/14/2018 10:58 AM CDT Inhaled Oxygen Concentration - - Weight 79.4 kg (175 lb) 12/14/2018 10:58 AM CDT Height 176.5 cm (5' 9.5 ) 12/14/2018 10:58 AM CD T Body Mass Index 25.47 12/14/2018 10:58 AM CDT Plan of Treatment Not on [place] [address] [employer] Care Teams Metallurgical Engineering Technician Relationship Specialty Start Date End Date Charisse Phan MD PCP - General Family Medicine 11/15/18
--- OUTSIDE RECORDS SUMMARY | 2024-07-25 08:45 | XMS_ITS | Data Portability ---
Author Organization [place] - [facility], Main Office Address [address] [place] [address] Care Team Providers Care Customer Service Advisor Name Role Phone LUCY LIN Primary Care Provider LUCY LIN Referring Provider [phone] RACH PHAN Primary Care Provider [phone] RACH PHAN Referring Provider Assessment Encounter Date Assessment Date Assessment LastModified by Organization Details LastModified Time 11/02/2022 11/02/2022 72-year-old male presents for evaluation of his right thumb pain. He is a previous patient of Dr. Mcmanus. He underwent left CMC arthroplasty in 2021, and is beginning to develop symptoms on the right side. He has had longstanding pain, getting worse over the past month. He denies again any acute injury. He has been using a copper fit brace, has not had any other treatments. He is right-hand dominant. Review of systems per patient questionnaire Physical exam: Left incision well-healed. He has good mobility and strength on the left side. For his right hand, he has a positive grind. Tenderness palpation of the thumb CMC. No tenderness over the A1 rolando. Negative Cresencio's. Sensation to light touch, brisk cap refill, 2+ radial pulse. X-rays of the hand reviewed, demonstrating mild joint space narrowing, no acute bony abnormality Will begin with the course of conservative management with meloxicam and spica bracing. We will have him follow-up in 1 month for recheck. He also inquired about his cervical radiculopathy diagnosis and asked me to review his MRI, he appears to have a bulging disc at C5-6 and C6-7. We will send him for a spine referral. [email or web address] Not available 11/02/2022 11:52:19 11/30/2022 11/30/2022 72-year-old male returns to clinic concerning right thumb CMC arthritis pain. He had significant improvement with meloxicam and bracing. he has no pain today during the visit. Will continue with meloxicam and bracing as tolerated. He may use topical Voltaren gel as needed. He may follow-up as needed if symptoms return. [email or web address] Not available 11/30/2022 11:55:34 Plan of Treatment Reminders Order Date Submit Date Provider Last Modified By Organization Details Last Modified Time Details Appointments None recorded . Lab PSA, total, serum or plasma 2022 023 CH[facility] Not available 3 19:16:17 HbA1c (hemoglo bin A1c), blood 2022 023 [facility] Not available 3 04:15:55 BMP, serum or plasma 2022 023 [facility] Not available 3 18:50:58 microalb umin, urine 2022 023 [facility] Not available 3 19:06:54 lipid panel, serum 2022 023 [facility] Not available 3 18:51:02 hepatic function panel, serum 2022 023 [facility] Not available 3 18:51:04 CBC w/ auto diff 2022 023 [facility] Not available 3 18:48:07 Referral pain manageme nt referral 2022 023 [facility], [address], [place], [address], 3 17:41:55 orthoped ic spine surgeon referral 2022 023 STU Amaro MD, [address], [address], [place], [address], 3 16:35:24 Procedures None recorded . Surgeries None recorded . Imaging LDCT, chest, for lung cancer screenin g - *Please call pt to schedule * 2022 023 [facility], [address], [place], [address], 4 16:12:36 XR, hand, 3 or more view 2022 023 [email or web address] 1 [facility] [place] [place], [address], [place], [address], 3 16:51:42 Medication Orders tramadol 50 mg tablet 2023 024 [id number], [address], [place], [id number], 4 15:15:09 meloxica m 15 mg tablet 2022 023 [email or web address] [facility] #[id number], [address] [facility], [place], [place], [id number], 3 15:05:08 Patient TargetsNo targets recorded. Patient InstructionsNo instructions recorded. Reason for Referral Orthopedic Spine Surgeon Ref erral for Cervical radiculopathy Referring Physician: Yung Hoover, Orthopedic Surgery, Encounter Date: 11/02/2022 Pain Management Referral for Degeneration of cervical intervertebral disc Referring Physician: Rach Phan, Family Medicine, Encounter Date: 01/16/2023 Results Created Date Observation Date Name Description Value Unit Range Abnormal Flag Note LastModifiedBy Organization Detail LastModifiedTime 01/17/2001/16/2023 CBC/C OMPLE TE BLD COUNT W/DIF F white blood cells 6.4 x10'3 /uL 4.2-10 .8 Not Available [facility] (Lab) [address], [place], [address], 01/16/2023 18:48:07 01/17/20 23 01/16/2023 CBC/C OMPLE TE BLD COUNT W/DIF F red blood cells 4.83 x10'6 /uL 4.10-5 .80 Not Available [facility] (Lab) [address] [place], [address], 01/16/2023 18:48:07 01/17/20 23 01/16/2023 CBC/C OMPLE TE BLD COUNT W/DIF F hemoglobin 15.6 g/dL 13.2-1 7.0 Not Available [facility] (Lab) [address] [place], [address], 01/16/2023 18:48:07 01/17/20 23 01/16/2023 CBC/C OMPLE TE BLD COUNT W/DIF F hematocrit 46.1 % 39.3-5 0.0 Not Available [facility] (Lab) [address] [place], [address], 01/16/2023 18:48:07 01/17/20 23 01/16/2023 CBC/C OMPLE TE BLD COUNT W/DIF F mean red cell volume 95.4 fL 80.0-9 7.0 Not Available [facility] (Lab) [address] [place], [address], 01/16/2023 18:48:07 01/17/20 23 01/16/2023 CBC/C OMPLE TE BLD COUNT W/DIF F mean red cell hemoglobin 32.3 pg 27.0-3 3.0 Not Available [facility] (Lab) [address] [place], [address], 01/16/2023 18:48:07 01/17/20 23 01/16/2023 CBC/C OMPLE TE BLD COUNT W/DIF F mean RBC HGB concentratio n 33.8 g/dL 31.0-3 6.0 Not Available [facility] (Lab) [address] [place], [address], 01/16/2023 18:48:07 01/17/20 23 01/16/2023 CBC/C OMPLE TE BLD COUNT W/DIF F red cell distribution width 13.2 % 11.8-1 5.5 Not Available [facility] (Lab) [address] [place], [address], 01/16/2023 18:48:07 01/17/20 23 01/16/2023 CBC/C OMPLE TE BLD COUNT W/DIF F platelets 255 x10'3 /uL 150-40 0 Not Available [facility] (Lab) [address] [place], [address], 01/16/2023 18:48:07 01/17/20 23 01/16/2023 CBC/C OMPLE TE BLD COUNT W/DIF F mean platelet volume 10.7 fL 9.0-12 .4 Not Available [facility] (Lab) [address] [place], [address], 01/16/2023 18:48:07 01/17/2001/16/2023 CBC/C OMPLE TE BLD COUNT W/DIF F neutrophils 70.2 % 39.0-7 2.0 Not Available [facility] (Lab) [address] [place], [address], 01/16/2023 18:48:07 01/17/2001/16/2023 CBC/C OMPLE TE BLD COUNT W/DIF F lymphocytes 18.6 % 16.0-4 7.0 Not Available [facility] (Lab) [address] [place], [address], 01/16/2023 18:48:07 01/17/20 23 01/16/2023 CBC/C OMPLE TE BLD COUNT W/DIF F monocytes 8.1 % 5.0-12 .0 Not Available [facility] (Lab) [address] [place], [address], 01/16/2023 18:48:07 01/17/20 23 01/16/2023 CBC/C OMPLE TE BLD COUNT W/DIF F eosinophils 1.1 % 1.0-7. 0 Not Available [facility] (Lab) [address] [place], [address], 01/16/2023 18:48:07 01/17/20 23 01/16/2023 CBC/C OMPLE TE BLD COUNT W/DIF F basophils 0.9 % 0.0-2. 0 Not Available [facility] (Lab) [address] [place], [address], 01/16/2023 18:48:07 01/17/20 23 01/16/2023 CBC/C OMPLE TE BLD COUNT W/DIF F immature granulocytes 1.1 % 0.00-0 .50 high Not Available [facility] (Lab) [address] [place], [address], 01/16/2023 18:48:07 01/17/20 23 01/16/2023 CBC/C OMPLE TE BLD COUNT W/DIF F neutrophils, absolute count 4.50 x10'3 /uL 1.5-8. 0 Not Available [facility] (Lab) [address] [place], [address], 01/16/2023 18:48:07 01/17/20 23 01/16/2023 CBC/C OMPLE TE BLD COUNT W/DIF F lymphocytes, absolute count 1.19 x10'3 /uL 1.07-3 .43 Not Available [facility] (Lab) [address] [place], [address], 01/16/2023 18:48:07 01/17/20 23 01/16/2023 CBC/C OMPLE TE BLD COUNT W/DIF F monocytes, absolute count 0.52 x10'3 /uL 0.29-0 .99 Not Available [facility] (Lab) [address] [place], [address], 01/16/2023 18:48:07 01/17/20 23 01/16/2023 CBC/C OMPLE TE BLD COUNT W/DIF F eosinophils, absolute count 0.07 x10'3 /uL 0.02-0 .53 Not Available [facility] (Lab) [address] [place], [address], 01/16/2023 18:48:07 01/17/20 23 01/16/2023 CBC/C OMPLE TE BLD COUNT W/DIF F basophils, absolute count 0.06 x10'3 /uL 0.01-0 .08 Not Available [facility] (Lab) [address] [place], [address], 01/16/2023 18:48:07 01/17/20 23 01/16/2023 CBC/C OMPLE TE BLD COUNT W/DIF F immature granulocytes ,absolute 0.07 x10'3 /uL 0.00-0 .05 high Not Available [facility] (Lab) [address] [place], [address], 01/16/2023 18:48:07 01/17/20 23 01/16/2023 CBC/C OMPLE TE BLD COUNT W/DIF F nucleated red blood cells 0.0 % -0 Not Available [facility] (Lab) [address] [place], [address], 01/16/2023 18:48:07 01/17/20 23 01/16/2023 CBC/C OMPLE TE BLD COUNT W/DIF F NRBC# 0.00 x10'3 /uL Not Available [facility] (Lab) [address] [place], [address], 01/16/2023 18:48:07 01/17/20 23 01/16/2023 BASIC METAB OLIC PANEL sodium 136 mmol/ L 137-14 5 low Not Available [facility] (Lab) [address] [place], [address], 01/16/2023 18:50:58 01/17/2001/16/2023 BASIC METAB OLIC PANEL potassium 4.3 mmol/ L 3.5-5. 1 Not Available [facility] (Lab) [address] [place], [address], 01/16/2023 18:50:58 01/17/20 23 01/16/2023 BASIC METAB OLIC PANEL chloride 107 mmol/ L 98-107 Not Available [facility] (Lab) [address] [place], [address], 01/16/2023 18:50:58 01/17/20 23 01/16/2023 BASIC METAB OLIC PANEL carbon dioxide 22 mmol/ L 22-30 Not Available [facility] (Lab) [address] [place], [address], 01/16/2023 18:50:58 01/17/20 23 01/16/2023 BASIC METAB OLIC PANEL anion gap 11.3 mmol/ L 14-22 low Not Available [facility] (Lab) [address] [place], [address], 01/16/2023 18:50:58 01/17/20 23 01/16/2023 BASIC METAB OLIC PANEL glucose 122 mg/dL 70-99 high Not Available [facility] (Lab) [address] [place], [address], 01/16/2023 18:50:58 01/17/20 23 01/16/2023 BASIC METAB OLIC PANEL BUN 26 mg/dL 8-19 high Not Available [facility] (Lab) [address] [place], [address], 01/16/2023 18:50:58 01/17/20 23 01/16/2023 BASIC METAB OLIC PANEL creatinine 0.88 mg/dL 0.66-1 .25 Not Available [facility] (Lab) [address] [place], [address], 01/16/2023 18:50:58 01/17/20 23 01/16/2023 BASIC METAB OLIC PANEL GFR >60 Refer ence Range : [place] ge GFR Healt hy Adult : >60 mL/mi n/1.7 3 m2 Chron ic Kidne y Disea se: 15-60 mL/mi n/1.7 3 m2 Kidne y Failu re: <15/m L/min /1.73 m2 www.n iddk. nih.g ov The MDRD study equat ion has not been valid ated in child nazia <18 years of age; pregn ant women ; the elder ly >85 years of age; or in some racia l or ethni c subgr oups, such as Hispa nics. Outsi de the valid ated barbara eters , estim ated GFR is less accur ate, requi ring clini raine judgm ent on a case- by-ca se basis . Clini raine inter preta tion for other races and ages must be made by the clini fe. The MDRD study equat ion has not been valid ated for the evalu ation of serum creat inine relat ed to nutri kim l statu s or medic ation usage . For perso ns <18 years of age, a pedia tric GFR calcu lator is avail able on the [facility] websi te: https ://vineet w.alex lee.o rg/pr glenness ional s/kdo qi/gf r_cal culat or Not Available [facility] (Lab) [address] [place], [address], 01/16/2023 18:50:58 01/17/2001/16/2023 BASIC METAB OLIC PANEL calcium 9.3 mg/dL 8.4-10 .2 Not Available [facility] (Lab) [address] [place], [address], 01/16/2023 18:50:58 01/17/2001/16/2023 LIPID PANEL cholesterol 159 mg/dL 140-19 9 NIH YAO NSUS RECOM MENDA TION FOR ARELIS STERO L: ADULT CHILD LOW RISK: <200 <170 BORDE RLINE : <200- 239 ----- HIGH RISK: >240 >200 Not Available [facility] (Lab) [address] [place], [address], 01/16/2023 18:51:01 01/17/20 23 01/16/2023 LIPID PANEL triglyceride s 75 mg/dL 0-150 NIH YAO NSUS REPOR T RECOM MENDA TION FOR TRIGL YCERI JUAN: ADULT CHILD LOW RISK: <150 ----- BODER LINE: 150-1 99 ----- HIGH RISK: >200 ----- Not Available [facility] (Lab) [address] [place], [address], 01/16/2023 18:51:01 01/17/20 23 01/16/2023 LIPID PANEL HDL cholesterol 57 mg/dL 40- Not Available [facility] (Lab) [address] [place], [address], 01/16/2023 18:51:01 01/17/20 23 01/16/2023 LIPID PANEL LDL cholesterol, calculated 87 mg/dL 0-130 NIH YAO NSUS REPOR T RECOM MENDA TIONS FOR LDL: ADULT CHILD LOW RISK <130 <110 (OPTI MAL LDL) <100 ----- BORDE RLINE : 130-1 59 ----- HIGH RISK: >160 >130 A TRIGL YCERI DE RESUL T >400 INVAL IDATE S THE CALCU LATIO N FOR LDL FRACT IONAT ION - THE LDL RESUL T WILL NOT BE REPOR RYAN. Not Available [facility] (Lab) [address] [place], [address], 01/16/2023 18:51:01 01/17/20 23 01/16/2023 HEPAT IC/LI IJEOMA PANEL alkaline phosphatase 57 U/L 38-126 Not Available [facility] (Lab) [address] [place], [address], 01/16/2023 18:51:04 01/17/20 23 01/16/2023 HEPAT IC/LI IJEOMA PANEL alanine aminotransfe rase 16 U/L 0-50 Not Available [facility] (Lab) [address] [place], [address], 01/16/2023 18:51:04 01/17/20 23 01/16/2023 HEPAT IC/LI IJEOMA PANEL aspartate aminotransfe rase 17 U/L 15-46 Not Available [facility] (Lab) [address] [place], [address], 01/16/2023 18:51:04 01/17/20 23 01/16/2023 HEPAT IC/LI IJEOMA PANEL bilirubin, total 0.60 mg/dL 0.20-1 .30 Not Available [facility] (Lab) [address] [place], [address], 01/16/2023 18:51:04 01/17/20 23 01/16/2023 HEPAT IC/LI IJEOMA PANEL bilirubin, conjugated (direct) 0.00 mg/dL 0.00-0 .30 Not Available [facility] (Lab) [address] [place], [address], 01/16/2023 18:51:04 01/17/20 23 01/16/2023 HEPAT IC/LI IJEOMA PANEL biliurubin,u ncong. (indirect) 0.30 mg/dL 0.00-1 .1 Not Available [facility] (Lab) [address] [place], [address], 01/16/2023 18:51:04 01/17/20 23 01/16/2023 HEPAT IC/LI IJEOMA PANEL total protein 7.0 g/dL 6.3-8. 2 Not Available [facility] (Lab) [address] [place], [address], 01/16/2023 18:51:04 01/17/20 23 01/16/2023 HEPAT IC/LI IJEOMA PANEL albumin 4.2 g/dL 3.0-4. 4 Not Available [facility] (Lab) [address] [place], [address], 01/16/2023 18:51:04 01/17/20 23 01/16/2023 HEPAT IC/LI IJEOMA PANEL globulin 2.8 g/dL 2.6-4. 2 Not Available [facility] (Lab) [address] [place], [address], 01/16/2023 18:51:04 01/17/20 23 01/16/2023 HEPAT IC/LI IJEOMA PANEL A/G ratio 1.5 ratio 1.0-2. 0 Not Available [facility] (Lab) [address] [place], [address], 01/16/2023 18:51:04 01/17/20 23 01/16/2023 MICRO ALBUM IN RANDO M URINE microalbumin , urine <6.0 mg/L 0.0-16 .6 Not Available [facility] (Lab) [address] [place], [address], 01/16/2023 19:06:54 01/17/2001/16/2023 PSA SCREE N PSA medicare screen 0.67 NG/mL 0.00-4 .00 Not Available [facility] (Lab) [address] [place], [address], 01/16/2023 19:16:17 01/17/2001/16/2023 HEMOG LOBIN A1C HA1C 6.3 % 4.0-6. 0 high Diabe kush Scree leatha Crite carmen: <5.7% Consi stent with absen ce of diabe kush 5.7-6 .4% Consi stent with incre ased risk for diabe kush (pred iabet es) >OR=6 .5% Consi stent with diabe kush REFER ENCE: Diabe kush Care 2016, 39(Monroy ppl.1 ):s13 -s22 Not Available [facility] ([facility]) [address] [place], [address], 01/16/2023 20:30:22 09/11/19 22 09/10/2021 XR, cervi raine spine , 2 or 3 view No observ ation record ed. [id number] Not Available 05/11/2022 15:59:25 11/03/19 XR, hand, 3 or more view No observ ation record ed. [facility] [place] [address], [place], [address], 11/02/2022 10:21:58 03/24/19 24 03/23/2023 LDCT, chest , for lung cance r scree leatha No observ ation record ed. [address], [place], [address], 07/22/2023 07:31:13 05/18/19 24 05/18/2023 PFT, compl ete No observ ation record ed. [address], [place], [address], 07/22/2023 07:31:47 05/18/19 24 05/18/2023 6 minut e walk test* No observ ation record ed. [address], [place], [address], 07/22/2023 07:31:32 11/14/19 24 11/14/2023 XR, hand No observ ation record ed. [address], [place], [address], 11/15/2023 11:31:00 12/11/19 24 12/10/2023 CT, angio gram, chest , w/ contr ast No observ ation record ed. [facility] [address], [place], [address], 12/14/2023 09:35:20 01/09/20 24 01/09/2024 XR, hand, 3 or more view No observ ation record ed. [email or web address] [facility] [address], [place], [address], 01/10/2024 08:45:06 02/01/20 24 01/31/2024 MRI, wrist , w/wo contr ast No observ ation record ed. [email or web address] [address], [place], [address], 02/01/2024 21:46:24 Result Notes None recorded. Problems Name Problem SNOMED Code Status Onset Date Resolution Date Notes Provider Name and Address Organization Details Recorded Time Pain in left thumb 83218584062 18931 Active 2021 Not Available [facility] 4 09:39:25 Localize d, primary osteoart hritis of the hand 572877088 Active Not Available [facility] 4 09:39:25 Ganglion cyst of right hand 12856037568 9107 Active 2021 Not Available [facility] 4 09:39:25 Pain of left hand 44949686465 9103 Active 2021 Not Available [facility] 4 09:39:25 Bronchit is 84697710 Active Not Available [facility] 4 09:39:25 Depressi ve disorder 48542921 Active Not Available [facility] 4 09:39:25 Osteoart hritis 164287963 Active 2021 Not Available [facility] 4 09:39:25 Vertigo 215492469 Active Not Available [facility] 4 09:39:25 Pain of shoulder region 02699292 Active Not Available [facility] 4 09:39:25 Hyperlip idemia 88773747 Active Not Available [facility] 4 09:39:25 Muscle pain 06510885 Active Not Available [facility] 4 09:39:25 Diabetes mellitus 82930386 Active Not Available [facility] 4 09:39:25 Sleep apnea 02313240 Completed 201907/02/2019 Sleep Study 4 Mild Obstruct aime Sleep Apnea Not Available [facility] 3 15:56:45 Obstruct aime sleep apnea syndrome 29906949 Active Sleep Study 4 Mild Obstruct aime Sleep Apnea Not Available [facility] 4 09:39:25 Fatigue 89675389 Active Not Available [facility] 4 09:39:25 Cervical radiculo axel 57501610 Active 2022 Not Available [facility] 4 09:39:25 Pain in right hand 30809984016 9109 Active 2022 Not Available [facility] 4 09:39:25 Degenera tion of cervical interver tebral disc 58112554 Active 2022 Not Available [facility] 4 09:39:25 Type 2 diabetes mellitus without complica tion 394095646 Active 2022 Not Available [facility] 4 09:39:25 Chest wall pain 858688955 Active 2023 KRISTOPHER Delgado-C [address] [place] [address], [address] , [facility] 4 14:38:36 Problem Notes None recorded. Procedures Surgical History Date Name Laterality Status Provider Name and Address Organization Details Recorded Time 05/07/19 repair of entropion completed Not Available [facility] 05/11/2022 15:54:23 cholecystectomy completed Not Available [facility] 05/11/2022 15:54:23 tonsillectomy completed Not Available [facility] 05/11/2022 15:54:23 Imaging Results Imaging Date Name Status LastModified by Organiz ation Details LastModified Time 09/10/2021 XR, cervical spine, 2 or 3 view completed [id number] Information not available 05/11/2022 15:59:25 11/02/2022 XR, hand, 3 or more view completed [email or web address] [facility] [place] [address], [place], [address], 11/02/2022 10:21:58 03/23/2023 LDCT, chest, for lung cancer screening completed [address], [place], [address], 07/22/2023 07:31:13 05/18/2023 PFT, complete completed [address], [address], 07/22/2023 07:31:47 05/18/2023 6 minute walk test* completed [address], [place], [address], 07/22/2023 07:31:32 11/14/2023 XR, hand completed [address], [place], [address], 11/15/2023 11:31:00 12/10/2023 CT, angiogram, chest, w/ contrast completed [address], [place], [address], 12/14/2023 09:35:20 01/09/2024 XR, hand, 3 or more view completed [address] [place] [address], [address], 01/10/2024 08:45:06 01/31/2024 MRI, wrist, w/wo contrast completed [address], [address], 02/01/2024 21:46:24 Procedure Notes None recorded. Medical Equipment None Reported. Allergies No known drug allergies Medications Name Sig Start Date Stop Date Status Note LastModified by Organization Details LastModified Time amoxicill in 500 mg capsule Take 1 capsule every 12 hours by oral route for 10 days. active Not Available Not Available No t Available methocarb karlene 500 mg tablet TAKE 1 TABLET BY MOUTH THREE TIMES DAILY 01/16 completed Not Available Not Available Not Available metformin 500 mg tablet TAKE 1 TABLET BY MOUTH TWICE DAILY active Not Available Not Available No t Available bupropion HCl SR 150 mg tablet,12 hr sustained -release TAKE 1 TABLET BY MOUTH ONCE DAILY FOR 90 DAYS 11/02 completed Not Available Not Available Not Available citalopra m 40 mg tablet TAKE 1 TABLET BY MOUTH DAILY active Not Available Not Available No t Available azithromy emiliano 250 mg tablet 2 tabs po qd x 1 day then 1 tab po qd x 4 days active Not Available Not Available No t Available ofloxacin 0.3 % eye drops 09/01 completed Not Available Not Available Not Available benzonata te 200 mg capsule TAKE 1 CAPSULE BY MOUTH THREE TIMES DAILY FOR COUGH PRN active Not Available Not Available No t Available hydrocodo ne 5 mg-acetam inophen 325 mg tablet 09/19 completed Not Available Not Available Not Available meloxicam 15 mg tablet TAKE 1 TABLET BY MOUTH EVERY DAY active Not Available Not Available No t Available FreeStyle Lancets 28 gauge CHECK BLOOD SUGAR TWICE DAILY active Not Available Not Available No t Available prednison e 20 mg tablet TAKE 2 TABLETS BY MOUTH ONCE DAILY FOR 5 DAYS 11/02 completed Not Available Not Available Not Available simvastat in 80 mg tablet 0.5 tabs po qhs 01/16 completed Not Available Not Available Not Available ciproflox acin 500 mg tablet 09/19 completed Not Available Not Available Not Available hydrocodo ne 10 mg-acetam inophen 325 mg tablet Take 1 tablet every 6-8 hours by oral route as needed. 11/02 completed Not Available Not Available Not Available aspirin 81 mg tablet,de layed release Take 1 tablet every day by oral route. 11/27 completed Not Available Not Available Not Available tramadol 50 mg tablet TAKE 1 TABLET BY MOUTH TWICE DAILY NEEDED FOR SEVERE PAIN active Not Available Not Available No t Available triamcino lone acetonide 0.1 % topical cream APPLY TOPICALL Y TO THE AFFECTED AREA ON BACK OF NECK TWICE DAILY FOR NO MORE THAN 4 WEEKS IN A ROW. 01/16 completed Not Available Not Available Not Available ketorolac 30 mg/mL (1 mL) injection solution Inject 1 mL by intramus cular route. 11/02 completed Not Available Not Available Not Available simvastat in 40 mg tablet TAKE 1 TABLET BY MOUTH EVERY DAY active Not Available Not Available No t Available ketorolac 0.5 % eye drops 09/01 completed Not Available Not Available Not Available amoxicill in 875 mg tablet Take 1 tablet every 12 hours by oral route for 7 days. active Not Available Not Available No t Available prednisol one acetate 1 % eye drops,uli walteron SHAKE LIQUID WELL AND INSTILL 1 DROP INTO RIGHT EYE FOUR TIMES DAILY 09/01 completed Not Available Not Available Not Available Kenalog 10 mg/mL suspensio n for injection In office injectio n administ ered by the provider 10/28 completed [facility]: [phone] 4- Not Available Not Available Not Available benzonata te 100 mg capsule Take 1 capsule 3 times a day by oral route as needed. 12/02 completed Not Available Not Available Not Available doxycycli ne monohydra te 100 mg capsule Take 1 capsule twice a day by oral route for 10 days. active Not Available Not Available No t Available triamcino lone acetonide 40 mg/mL suspensio n for injection Take 1 mL by injectio n route. 01/16 completed Not Available Not Available Not Available hydrocodo ne 7.5 mg-acetam inophen 325 mg tablet Take 1 tablet every 6 hours by oral route. 01/16 completed Not Available Not Available Not Available cephalexi n 500 mg capsule 11/02 completed Not Available Not Available Not Available pantopraz ole 40 mg tablet,de layed release Take 1 tablet every day by oral route. active Not Available Not Available No t Available erythromy emiliano 5 mg/gram (0.5 %) eye ointment APPLY TO LOWER EYE LID OF AFFECTED EYE FOUR TIMES DAILY FOR 10 DAYS 11/02 completed Not Available Not Available Not Available oseltamiv ir 75 mg capsule 1 po qday x 10 days 09/19 [id number]|2024-07-25 08:45:00|2024-07-25 08:45:00|XMS_ITS|NILTON PIPER|External Medical Summaries|[id number]|" Clinical Summary Created on: July 25, 2024 Baron Barnett : 1950 Sex: Male Author Organization [facility] Address [address] [place] [address] Care Team Providers Care Customer Service Advisor Name Role Phone Alondra Shine Primary Care Provider Social History Tobacco Use Types Packs/Day Years Used Date Smoking Tobacco: Never Assessed Sex and Gender Information Value Date Recorded Sex Assigned at Not on file Legal Sex Male 10:39 AM CDT Gender Identity Not on file Sexual Orientation Not on file Plan of Treatment Health Maintenance Due Date Last Done Comments Colorectal Cancer Screening Colonoscopy (10 Years) 1950 Hepatitis C 09/06/1969 DTaP, Tdap and Td Vaccines ( 1 - Tdap) 09/06/1970 Pneumococcal Vaccine: 50+ Ye ars (1 of 1 - PCV) 09/06/2001 Zoster Vaccines (1 of 2) 09/06/2001 Annual Medicare Wellness Visit 09/06/2016 COVID-19 Vaccine ( - 2023-2 5 season) 2023 RSV Immunization or 60+ Years (1 - 1-dose 75+ series) 09/06/2026 Meningococcal B Vaccine Aged Out No l onger eligible based on patient's age to complete this topic Meningococcal Vaccine Aged Out No angel isaiah eligible based on patient's age to complete this topic RSV Immunizations Under 20 Months Aged Out No longer eligible based on patient's age to complete this topic Insurance MEDICARE [facility] Care Teams Customer Service Advisor Relationship Specialty Start Date End Date Alondra Shine PA [address] [place] [id number] PCP - General PHYSICIAN PHARMACEUTICAL PLANT OPERATOR 12/28/21 "
--- OUTSIDE RECORDS SUMMARY | 2024-07-25 08:45 | XMS_ITS | Referral Summary ---
Author Organization 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
[2024-07-25 09:12] LABS: Basophils Absolute Auto 0.1 K/mm3 (0.0-0.1); Basophils Percent Auto 0.8 % (0.2-1.2); Eosinophils Absolute Auto 0.1 K/mm3 (0-0.3); Eosinophils Percent Auto 1.8 % (0-4.4); Hematocrit 44.7 % (42.0-52.0); Hemoglobin 15.1 g/dL (14.0-18.0); Immature Granulocyte Absolute 0.07 K/mm3 (0.00-0.031); Immature Granulocyte Percent A 1.2 % (0-0.5); Lymphocytes Absolute Auto 1.36 K/mm3 (0.9-3.2); Lymphocytes Percent Auto 22.7 % (18.3-44.2); Mean Corpuscular HGB Conc 33.8 g/dl (32-36); Mean Corpuscular Hemoglobin 31.5 pg (26-34); Mean Corpuscular Volume 93.3 fl (80-100); Mean Platelet Volume 9.7 fl (7.4-10.4); Monocytes Absolute Auto 0.6 K/mm3 (0.1-0.6); Monocytes Percent Auto 9.3 % (2.6-8.5); Neutrophils Absolute Auto 3.8 K/mm3 (1.3-6.7); Neutrophils Percent Auto 64.2 % (45.5-73.1); Platelet Count Result 240 k/mm3 (150-375); Red Blood Count 4.79 M/mm3 (4.6-6.20)
[2024-07-25 09:21] LABS: Hemoglobin A1C 6.7 % (<5.7)
[2024-07-25 09:34] LABS: LDL Cholesterol Direct 90 mg/dL
[2024-07-25 10:25] LABS: Thyroid Stimulating Hormone 0.961 uIU/mL (0.465-4.680)
[2024-07-25 10:41] LABS: Alanine Aminotransferase 20 U/L (6-50); Albumin Level 4.4 g/dL (3.5-5.1); Alkaline Phosphatase 63 U/L (38-126); Anion Gap 11 mmol/L (4-12); Aspartate Amino Transferase 28 U/L (17-59); Bilirubin,Total 0.6 mg/dL (0.2-1.3); Blood Urea Nitrogen 16 mg/dL (9-20); Calcium 8.9 mg/dL (8.4-10.2); Carbon Dioxide 22 mmol/L (22-30); Chloride 106 mmol/L (98-107); Cholesterol 172 mg/dL (0-200); Estimated Glomerular Filt Rate > 60; Glucose 156 mg/dL (65-110); HDL Direct 53 mg/dL; Sodium 139 mmol/L (137-145); Triglycerides 80 mg/dL (<150)
[2024-07-25 17:07] LABS: Creatinine Urine 144.7 mg/dL
[2024-07-25 17:17] LABS: MALB Creatinine Ratio < 4.1 mg/g (0-30); Microalbumin Urine Random < 6.0 mg/L (0-16.7)
[2024-07-26 07:24] LABS: Add Urine Microscopic? YES; Appearance Urine Turbid (Clear); Bacteria Urine None Seen /hpf; Bilirubin Urine Negative (Negative); Blood Urine Negative (Negative); Color Urine Yellow (Yellow); Glucose Urine UA Negative (Negative); Ketones Urine Negative (Negative); Leukocyte Esterase Ur Negative LEU/UL (Negative); Nitrate Urine Negative (Negative); Non Pathogenic Casts 0-2; Protein Urine Negative (Negative); RBC Urine 0-2 /hpf (0-2); Specific Grav Ur 1.021 (1.001-1.035); Squamous Epithelial Cell Urine None Seen /hpf (Few); WBC Urine 0-5 /hpf (0-3); pH Urine 5.5 (5.0-9.0)
== END 2024-07-25 08:41 | disposition home or self-care (01) ==
PROVIDERS: PCP Nurse Practitioner; Visit Provider Nurse Practitioner
DX: R39.11 Hesitancy of micturition (principal); E11.9 Type 2 diabetes mellitus without complications; E78.5 Hyperlipidemia, unspecified; N42.9 Disorder of prostate, unspecified
CPT/HCPCS: 36415; 80053; 80061; 81001; 82043; 83036; 84443; 85025

== ENCOUNTER 2025-01-31 11:47 | Outpatient (CLI) | payer MEDICARE, OTHER, SELFPAY ==
--- OUTSIDE RECORDS SUMMARY | 2025-01-31 11:51 | XMS_ITS | Clinical Summary ---
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 Gender Identity Not on file Sexual Orientation Not on file Plan of Treatment Health Maintenance Due Date Last Done Comments Hepatitis C Virus (HCV) Screening 1950 TdaP Immunization 1950 Cologuard 09/06/1996 Colonoscopy 09/06/1996 Colorectal Cancer Screening 09/06/1996 Immunochemical Fecal Occult Blood 09/06/1996 Pneumococcal Immunization (50+ years) (1 of 1 - PCV) 09/06/2001 Zoster Immunization (2 of 2) 11/26/2020 10/01/2020, 10/01/2020 Influenza Immunization (#1) 11/11/202412/11, 12/21/2019, 12/21/2019, Additional history exists SARS-COV-2 Immunization (2024- season) 2024 01/25/2021, 05/29/2020, 05/29/2020, Additional history exists Respiratory Syncytial Virus (RSV) Immunization (Adult) (1 - 1-dose 75+ series) 09/06/2026 Hepatitis B Immunization Aged Out No longer eligible based on patient's age to complete this topic Human Papillomavirus (HPV) Immunization Aged Out No longer eligible based on patient's age to complete this topic Meningococcal Immunization (ACWY) Aged Out No longer eligible based on patient's age to complete this topic Rotavirus Immunization Aged Out No lo nger eligible based on patient's age to complete this topic
--- OUTSIDE RECORDS SUMMARY | 2025-01-31 11:51 | XMS_ITS | Clinical Summary ---
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
--- OUTSIDE RECORDS SUMMARY | 2025-01-31 11:51 | XMS_ITS | Clinical Summary ---
Author Organization [facility] Address [address] [place] [address] Care Team Providers Care Assistant Teaching Professor Name Role Phone Alondra Shine Primary Care Provider [phone] Social History Tobacco Use Types Packs/Day Years [...] Wellness Visit 09/06/2016 COVID-19 Vaccine ( - 2024-2 6 season) 2024 Influenza Adult (#1) 2024 RSV Immunization or 60+ Years (1 - 1-dose 75+ series) 09/06/2026 Hepatitis A Vaccines Aged Out No long er eligible based on patient's age to complete this topic Meningococcal B Vaccine Aged Out No l onger eligible based on patient's age to complete this topic Meningococcal Vaccine Aged Out No angel isaiah eligible based on patient's age to complete this topic RSV Immunizations Under 20 Months Aged Out No longer eligible based on patient's age to complete this topic Insurance MEDICARE [employer] Care Teams Assistant Teaching Professor Relationship Specialty Start Date End Date Alondra Shine PA [address] [place] [address] PCP - General PHYSICIAN SODA DRIER FEEDER 12/28/21
[2025-01-31 12:15] LABS: Hematocrit 41.1 % (42.0-52.0); Hemoglobin 14.1 g/dL (14.0-18.0); Immature Granulocyte Percent A 3.0 % (0-0.5); Lymphocytes Absolute Auto 1.26 K/mm3 (0.9-3.2); Mean Corpuscular HGB Conc 34.3 g/dl (32-36); Mean Corpuscular Hemoglobin 31.7 pg (26-34); Mean Corpuscular Volume 92.4 fl (80-100); Nucleated Red Blood Cells Absolute Auto 0.000 K/mm3 (0.0-0.012); Nucleated Red Blood Cells Perc 0.0 % (0.0-0.2); Platelet Count Result 265 k/mm3 (150-375); Red Blood Count 4.45 M/mm3 (4.6-6.20); White Blood Count 6.1 K/mm3 (4.5-10.0)
[2025-01-31 12:32] LABS: Alanine Aminotransferase 16 U/L (6-50); Albumin Level 4.0 g/dL (3.5-5.1); Alkaline Phosphatase 77 U/L (38-126); Anion Gap 6 mmol/L (4-12); Aspartate Amino Transferase 20 U/L (17-59); Bilirubin,Total 0.6 mg/dL (0.2-1.3); Blood Urea Nitrogen 14 mg/dL (9-20); Calcium 8.3 mg/dL (8.4-10.2); Carbon Dioxide 20 mmol/L (22-30); Chloride 108 mmol/L (98-107); Cholesterol 187 mg/dL (0-200); Estimated Glomerular Filt Rate > 60; Glucose 167 mg/dL (65-110); HDL Direct 46 mg/dL; Potassium 4.4 mmol/L (3.4-5.0); Sodium 134 mmol/L (137-145); Total Protein 6.9 g/dL (6.3-8.2); Triglycerides 90 mg/dL (<150)
[2025-01-31 13:07] LABS: Thyroid Stimulating Hormone 0.687 uIU/mL (0.465-4.680)
[2025-01-31 13:52] LABS: Hemoglobin A1C 6.9 % (<5.7)
== END 2025-01-31 11:48 | disposition home or self-care (01) ==
LOC: ANHLAB 11:49
PROVIDERS: PCP Family Medicine; Visit Provider Family Medicine
DX: E11.9 Type 2 diabetes mellitus without complications (principal); E78.5 Hyperlipidemia, unspecified; N42.9 Disorder of prostate, unspecified; R39.11 Hesitancy of micturition; F32.A Depression, unspecified
CPT/HCPCS: 36415; 80053; 80061; 83036; 84443; 85025